=== PATIENT | male | born 1950 | race Caucasian/White ===

== ENCOUNTER → 2019-07-25 13:56 | Outpatient (BNVA) | payer MEDICARE, BC, SELFPAY | PROVIDERS: Family Provider Nurse Practitioner; PCP Nurse Practitioner; Visit Provider Nurse Practitioner | DX: M48.061 Spinal stenosis, lumbar region without neurogenic claudication (principal); M47.816 Spondylosis without myelopathy or radiculopathy, lumbar region; Z79.891 Long term (current) use of opiate analgesic | CPT/HCPCS: 99214 ==

== ENCOUNTER → 2019-12-25 14:07 | Outpatient (BNVA) | payer MEDICARE, BC, SELFPAY | PROVIDERS: Family Provider Nurse Practitioner; PCP Nurse Practitioner; Visit Provider Nurse Practitioner | DX: G89.29 Other chronic pain (principal); M54.42 Lumbago with sciatica, left side; M54.41 Lumbago with sciatica, right side; M48.061 Spinal stenosis, lumbar region without neurogenic claudication; Z79.891 Long term (current) use of opiate analgesic | CPT/HCPCS: 99214 ==

== ENCOUNTER → 2020-01-14 14:05 | Outpatient (BNVA) | payer OTHER, SELFPAY | PROVIDERS: Family Provider Nurse Practitioner; PCP Nurse Practitioner; Visit Provider Anesthesiology Pain Medicine | DX: G89.29 Other chronic pain (principal); M47.816 Spondylosis without myelopathy or radiculopathy, lumbar region; Z79.891 Long term (current) use of opiate analgesic | CPT/HCPCS: 64493; 64494; 64495; J3490 ==

== ENCOUNTER → 2020-03-04 12:34 | Outpatient (BNVA) | payer MEDICARE, BC, SELFPAY | PROVIDERS: Family Provider Nurse Practitioner; PCP Nurse Practitioner; Visit Provider Anesthesiology | DX: G89.29 Other chronic pain (principal); M54.41 Lumbago with sciatica, right side; M54.42 Lumbago with sciatica, left side; M47.816 Spondylosis without myelopathy or radiculopathy, lumbar region; M48.061 Spinal stenosis, lumbar region without neurogenic claudication; M51.36 Other intervertebral disc degeneration, lumbar region; Z79.891 Long term (current) use of opiate analgesic | CPT/HCPCS: 99213; 99214 ==

== ENCOUNTER → 2020-03-24 13:25 | Outpatient (BNVA) | payer MEDICARE, BC, SELFPAY | PROVIDERS: Family Provider Nurse Practitioner; PCP Nurse Practitioner; Visit Provider Anesthesiology | DX: G89.29 Other chronic pain (principal); M48.061 Spinal stenosis, lumbar region without neurogenic claudication; M47.816 Spondylosis without myelopathy or radiculopathy, lumbar region; M51.36 Other intervertebral disc degeneration, lumbar region; G62.9 Polyneuropathy, unspecified; Z79.891 Long term (current) use of opiate analgesic | CPT/HCPCS: 99214 ==

== ENCOUNTER → 2020-04-13 12:29 | Outpatient (BNVA) | payer OTHER, BC, SELFPAY | PROVIDERS: Family Provider Nurse Practitioner; PCP Nurse Practitioner; Visit Provider Anesthesiology Pain Medicine | DX: G89.29 Other chronic pain (principal); M47.816 Spondylosis without myelopathy or radiculopathy, lumbar region | CPT/HCPCS: 64635; 64636; J1030 ==

== ENCOUNTER → 2020-05-13 12:05 | Outpatient (BNVA) | payer OTHER, BC, SELFPAY | PROVIDERS: Family Provider Nurse Practitioner; PCP Nurse Practitioner; Visit Provider Anesthesiology Pain Medicine | DX: G89.29 Other chronic pain (principal); M47.816 Spondylosis without myelopathy or radiculopathy, lumbar region; Z79.891 Long term (current) use of opiate analgesic | CPT/HCPCS: 64635; 64636; J1030 ==

== ENCOUNTER → 2020-05-26 12:32 | Outpatient (BNVA) | payer OTHER, BC, SELFPAY | PROVIDERS: Family Provider Nurse Practitioner; PCP Nurse Practitioner; Visit Provider Anesthesiology | DX: G89.29 Other chronic pain (principal); M54.41 Lumbago with sciatica, right side; M48.061 Spinal stenosis, lumbar region without neurogenic claudication; M51.36 Other intervertebral disc degeneration, lumbar region; M47.816 Spondylosis without myelopathy or radiculopathy, lumbar region; M47.819 Spondylosis without myelopathy or radiculopathy, site unspecified; G62.9 Polyneuropathy, unspecified; Z79.891 Long term (current) use of opiate analgesic | CPT/HCPCS: 99213; 99214 ==

== ENCOUNTER → 2020-07-17 09:55 | Outpatient (BNVA) | payer OTHER, BC, SELFPAY | PROVIDERS: Family Provider Nurse Practitioner; PCP Nurse Practitioner; Visit Provider Internal Medicine Pulmonary Disease | DX: Z20.822 Contact with and (suspected) exposure to COVID-19 (principal); R06.02 Shortness of breath | CPT/HCPCS: 87635 ==

== ENCOUNTER 2020-07-23 11:35 | Outpatient (CLI) | payer OTHER, MEDICARE, BC, SELFPAY ==
--- NOTE | 2020-07-23 12:41 | PFTS_ITS ---
Date of Study:07/23/20 Date of Dictation: MECHANICS: Forced vital capacity (FVC) is normal. Forced expiratory volume in one second (FEV1) is normal. FEV1/FVC is reduced. FLOW VOLUME LOOP: The peak expiratory flow was not achieved in the beginning of forced expiratory maneuver during the pulmonary function testing. LUNG VOLUMES: Total lung capacity (TLC) is normal. Residual volume (RV) is increased. DIFFUSING CAPACITY FOR CARBON MONOXIDE: Normal. INTERPRETATION: The prebronchodilator spirometry is consistent with mild airflow obstruction. No postbronchodilator spirometry was performed. Lung volumes are consistent with air trapping. Gas exchange (DLCO) is normal. MTDD
== END 2020-07-23 11:36 ==
PROVIDERS: PCP Nurse Practitioner; Visit Provider Internal Medicine Pulmonary Disease
DX: G89.29 Other chronic pain (principal); M54.41 Lumbago with sciatica, right side; M54.42 Lumbago with sciatica, left side; M48.061 Spinal stenosis, lumbar region without neurogenic claudication; M51.36 Other intervertebral disc degeneration, lumbar region; M47.816 Spondylosis without myelopathy or radiculopathy, lumbar region; Z79.891 Long term (current) use of opiate analgesic
CPT/HCPCS: 94010; 94726; 94729; 99213

== ENCOUNTER → 2020-08-05 14:13 | Outpatient (BNVA) | payer OTHER, MEDICARE, BC, SELFPAY | PROVIDERS: PCP Nurse Practitioner; Visit Provider Anesthesiology Pain Medicine | DX: G89.29 Other chronic pain (principal); M47.814 Spondylosis without myelopathy or radiculopathy, thoracic region; M54.42 Lumbago with sciatica, left side; M54.41 Lumbago with sciatica, right side; Z79.891 Long term (current) use of opiate analgesic | CPT/HCPCS: 64490; 64491; 64492; J3490 ==

== ENCOUNTER → 2020-08-21 10:48 | Outpatient (BNVA) | payer OTHER, BC, SELFPAY | PROVIDERS: PCP Nurse Practitioner; Visit Provider Anesthesiology Pain Medicine | DX: G89.29 Other chronic pain (principal); M54.42 Lumbago with sciatica, left side; M54.41 Lumbago with sciatica, right side; M47.814 Spondylosis without myelopathy or radiculopathy, thoracic region; Z79.891 Long term (current) use of opiate analgesic | CPT/HCPCS: 99213 ==

== ENCOUNTER 2020-08-28 06:00 | Outpatient (CLI) | payer OTHER, SELFPAY ==
--- NOTE | 2020-08-28 | USCV_ITS ---
Slaughter Mason Age: 70 Gender: M : 1950 Exam Date: 08/28/2020 08:46 Ordering Phys: Suraj Cardoza M.D ([email or web address]) Technologist: Angy Berger [place] [facility] [place]: CHEST PAIN BP: 140 / 90 HR: 63 Rhythm: Sinus Technical Quality: Adequate MEASUREMENTS (Male / Female) Normal Values 2D ECHO LV Diastolic Diameter PLAX 3.4 cm 4.2 - 5.9 / 3.9 - 5.3 cm LV Systolic Diameter PLAX 2.1 cm LV Chamber Size 3.5 cm IVS Diastolic Thickness 1.3 cm 0.6 - 1.0 / 0.6 - 0.9 cm IVS Systolic Thickness 1.8 cm LVPW Diastolic Thickness 1.3 cm 0.6 - 1.0 / 0.6 - 0.9 cm LVPW Systolic Thickness 1.6 cm RV Chamber Size 3.8 cm LVOT Diameter 2.1 cm LV Ejection Fraction 2D Teich 69.3 % LV Ejection Fraction MOD 2C 38.0 % LV Ejection Fraction 2C AL 40.8 % LA Diameter 3.6 cm LA Width 3.5 cm LA Height 3.7 cm RA Width 4.8 cm RA Height 5.1 cm Aorta at Sinotubular Diameter 3.9 cm M-MODE LV Diastolic Diameter MM 4.9 cm 4.2 - 5.9 / 3.9 - 5.3 cm LV Systolic Diameter MM 3.5 cm LV Ejection Fraction MM Teich 56.8 % IVS Diastolic Thickness MM 1.1 cm 0.6 - 1.0 / 0.6 - 0.9 cm IVS Systolic Thickness MM 1.5 cm LVPW Diastolic Thickness MM 1.3 cm 0.6 - 1.0 / 0.6 - 0.9 cm LVPW Systolic Thickness MM 2.0 cm Aortic Annulus Diameter 4.0 cm LA Ao Ratio MM 0.9 MV E Point Septal Separation 0.6 cm DOPPLER AV Peak Velocity 138.0 cm/s LVOT Peak Velocity 101.0 cm/s AV Area Cont Eq vti 2.6 cm squared AV Area Cont Eq pk 2.6 cm squared MV Area PHT 4.6 cm squared Mitral E to A Ratio 1.1 MV E' Velocity 46.0 cm/s Mitral E to MV E' Ratio 8.1 Mitral E to LV E' Lateral Ratio 7.9 Mitral E to LV E' Septal Ratio 8.5 TR Peak Velocity 203.5 cm/s TR Peak Gradient 16.6 mmHg TR Mean Velocity 150.7 cm/s TR Mean Gradient 10.5 mmHg TR Velocity Time Integral 51.6 cm TV Peak E Velocity 63.0 cm/s Right Atrial Pressure 3.0 mmHg Pulmonary Artery Systolic Pressu 19.6 mmHg PV Peak Velocity 89.0 cm/s RV Acceleration Time 0.1 s RV Ejection Time 0.3 s RV AcT/ET 0.3 FINDINGS Left Ventricle Normal left ventricular size. LV systolic function is mildly reduced with EF of 45-50%. Mild global hypokinesis is seen. Normal diastolic filling pattern. Right Ventricle The right ventricle is normal in size and function. Right Atrium The right atrium is normal in size. Left Atrium The left atrium is normal in size. Mitral Valve Structurally normal mitral valve without significant stenosis or prolapse. There is no mitral regurgitation. Aortic Valve Structurally normal aortic valve without significant sclerosis or stenosis. There is no aortic regurgitation. Tricuspid Valve Structurally normal tricuspid valve without significant stenosis or regurgitation. Insufficient TR jet to calculate RVSP Pulmonic Valve Structurally normal pulmonic valve without significant stenosis. There is no pulmonic regurgitation. Pericardium Normal pericardium without effusion. Aorta Mildly dilated ascending aorta CONCLUSIONS LV systolic function is mildly reduced with EF of 45-50%. Mild global hypokinesis is seen Diastolic function is normal Mildly dilated ascending aorta No significant valvular heart disease No comparison studies available Suraj Cardoza MD (Electronically Signed) Final Date: 28 August 2020 15:50 S
[2020-08-28 06:47] VITALS: BMI 29.5
--- NOTE | 2020-08-28 06:47 | ECG_ITS ---
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 Interpretive Statements NAME OF STUDY: LEXISCAN SESTAMIBI STRESS TEST INDICATION: [Chest Pain] Procedure: At the baseline, the blood pressure was 158/95 mmHg, heart rate of 60 bpm. Electrocardiogram showed normal sinus rhythm, with normal ST-T waves. The Lexiscan was infused over a duration of 20 seconds. A total of 0.4 mg of Lexiscan was infused. The stress phase was continued for a total of 5 minutes. Heart rate at the end of stress phase was 65 bpm with a blood pressure of 130/94 mmHg. The EKG revealed sinus rhythm with no significant ST-T wave changes. Sestamibi was injected 20 seconds after the Lexiscan infusion. Blood pressure at the end of recovery phase was 140/91 mmHg with a heart rate of 69 bpm. Conclusion: 1. Normal EKG response to Lexiscan infusion. 2. No Lexiscan induced chest pain or cardiac arrhythmia. 3. Normal blood pressure and heart rate response. 4. Sestamibi/sestamibi perfusion scan pending; see separate report. Electronically Signed On 09-13-2020 17:34:12 CDT by Suraj Cardoza M.D. [email or web address]
--- NOTE | 2020-08-28 06:48 | NMCV_ITS ---
NM jean-paul perf SPECT r/s* [id number] Mason Slaughter Age: 70 Gender: M : 1950 Exam Date: 08/28/2020 07:52 Ordering Phys: Suraj Cardoza M.D ([email or web address]) Technologist: ONUR Florence Exam Location: [facility] Indications: CHEST PAIN STRESS TEST Please [facility] for [facility] IMAGE PROTOCOL Rest/Stress 1 Lexiscan Day Radiopharmaceutical Dose (mCi) Administration Site Administered by Rest: Tc-99m 10.7 IV ONUR Florence Sestamibi Stress:Tc-99m 32.9 IV ONUR Florence Sestamibi Rest: 28-Aug-2020 60 Discovery 630 Stress: 28-Aug-2020 30 Discovery 630 0.4mg Lexiscan. Images obtained in supine and prone position. SPECT RESULTS Technical Quality: Excellent Raw Data Analysis: Normal Image Corrections: No attenuation or motion correction applied Summed Stress Score: 5 Summed Rest Score: 7 Summed Difference Score: 1 PERFUSION FINDINGS There is reduced radiotracer uptake in the apical inferior and inferior wall both on rest and stress. Likely related to prior infarct or attenuation artifact. No evidence of ischemia is noted FUNCTIONAL RESULTS (calculated via Gated SPECT) Stress Image LV EF (%): 55 Stress EDV (mL):121 TID: 1.16 Stress ESV (mL):55 FUNCTIONAL FINDINGS: There is normal left ventricular systolic function. IMPRESSIONS 1. Persistent low radiotracer uptake in the inferior and apical inferior luo. Prior infarct vs attenuation artifact of the inferior wall seen. No evidence of ischemia 2. Normal LV systolic function Suraj Cardoza MD (Electronically Signed) Final Date: 28 August 2020 15:36 S
[2020-08-28] MEDS: regadenoson 0.4 Mg/5 ml Syringe IVP (08:35)
[2020-08-28 08:37] VITALS: BP 140/91; PULSE 74
== END 2020-08-28 06:01 | disposition home or self-care (01) ==
LOC: CDL 06:00
PROVIDERS: PCP Nurse Practitioner; Visit Provider Internal Medicine
DX: R07.9 Chest pain, unspecified (principal)
CPT/HCPCS: 78452; 93017; 93306; A9500; J2785

== ENCOUNTER → 2020-09-17 10:12 | Outpatient (BNVA) | payer OTHER, BC, SELFPAY | PROVIDERS: PCP Nurse Practitioner; Visit Provider Surgery | DX: R09.89 Other specified symptoms and signs involving the circulatory and respiratory systems (principal); Z86.010 Personal history of colon polyps; Z20.822 Contact with and (suspected) exposure to COVID-19 | CPT/HCPCS: 87635 ==

== ENCOUNTER 2020-09-22 07:48 | Day surgery (SDC) | payer OTHER, SELFPAY ==
[2020-09-18 14:25] VITALS: BMI 29.2
--- NOTE | 2020-09-22 08:07 | ANES.PREANE2 ---
Pre-Anesthetic Assessment Pre-Anesthetic Assessment: Height/Weight: Height 1.88 m Weight 103.419 kg Proposed Procedure: Operation Date: 09/22/20 09:30 Proposed Procedures p EGD(Not Applicable) - Nav Rivas MD s Colonoscopy(Not Applicable) - Nav Rivas MD Was Beta Nitza taken within 24 hours: N/A Was Clonidine taken within 24 hours: N/A Social: Social History: No alcohol and No tobacco (quit smoking 2017) Exam: Pre-Anes Outpt Exam: alert, oriented x 3, clear to auscultation bilaterally and regular rate & rhythm (occasional irregular beats ) Airway: Submandibular: WNL Cervical ROM: WNL MP: 2 Dentition: Chipped Pulmonary: Pulmonary: COPD CV/HEM: CV/HEM: None reported : : None reported Hepatic: Hepatic: None reported GI: GI: None reported Metabolic: Metabolic: Thyroid Musc/skel: Musc/skel: Lower Back Pain and OA/DJD Neuropsych: Neuropsych: None reported Anesthetic Plan: ASA status: 3 Anesthesia: MAC PFSH Anesthesia PFSH: Medical History (Updated 09/04/20 @ 09:48 by Nav Rivas MD) Chronic low back pain Colon polyps Facet syndrome, lumbar Polyneuropathy Spinal stenosis, lumbar Surgical History (Updated 09/04/20 @ 09:48 by Nav Rivas MD) History of colonoscopy 2018 Hx of decompressive lumbar laminectomy (~2011) Hx of lumbar discectomy (~06/16/16) Hx of nasal sinusotomy Hx of shoulder surgery RIGHT Family History Other Diabetes Denies family history of Anesthesia complication Bleeding disorder Social History Smoking and tobacco status: former smoker Quit status (tobacco): has quit using tobacco Year quit tobacco: 2017 [id number] Second hand smoke exposure: No Smoking risk assessment/counseling performed?: Yes Alcohol intake: never Lives independently: Yes Household members: none Housing: House Marital status: service: Yes Current occupational status: retired Pets and animals: Yes History of recent travel: No Current gender identity: Male Data Anesthesia Cardiac Studies: No Data to Display
[2020-09-22 08:19] VITALS: BP 172/89; PULSE 64; RESP 18; TEMP 36.8; O2SAT 97
[2020-09-22] MEDS: sodium chloride 0.9% 1,000 ML 30 ML IV (08:25)
--- NOTE | 2020-09-22 09:33 | W.PM.OPSUD ---
Surgery/Procedure H&P Update DATE OF PROCEDURE: September 22, 2020 DATE H&P PERFORMED: 09/04/20 H&P UPDATE INFORMATION: I have reviewed H&P completed within last 30 days, I have examined patient prior to procedure and No changes to prior documentation PREOP DIAGNOSIS: panendoscopy PLANNED PROCEDURE: Operation Date: 09/22/20 09:30 Proposed Procedures p EGD(Not Applicable) - Nav Rivas MD s Colonoscopy(Not Applicable) - Nav Rivas MD
[2020-09-22 10:27] VITALS: BP 105/79; PULSE 68; RESP 16; TEMP 36.1; O2SAT 94
[2020-09-22 10:40] VITALS: BP 122/90; PULSE 66; RESP 18; O2SAT 95
--- NOTE | 2020-09-22 11:39 | ANE.PACU2 ---
Inpatient post-anesthesia follow up: Airway intact: Yes Vital signs: Temperature 97.0 F Pulse Rate 66 Respiratory Rate 18 Blood Pressure 122/90 Pulse Oximetry 95 Oxygen Delivery Me thod Nasal Cannula Oxygen Flow Rate 2 Fraction of Inspir ed Oxygen Hydration adequate: Yes Nausea and vomiting: No Mental status: Baseline
--- NOTE | 2020-09-22 13:47 | ANE.PACU2 ---
Inpatient post-anesthesia follow up: Airway intact: Yes Vital signs: Temperature 97.0 F Pulse Rate 66 Respiratory Rate 18 Blood Pressure 122/90 Pulse Oximetry 95 Oxygen Delivery Me thod Nasal Cannula Oxygen Flow Rate 2 Fraction of Inspir ed Oxygen Hydration adequate: Yes Nausea and vomiting: No Pain level: 2 Mental status: Baseline
== END 2020-09-22 11:00 | disposition home or self-care (01) ==
PROVIDERS: PCP Nurse Practitioner; Visit Provider Surgery
PROC: 0DJ08ZZ Inspection of Upper Intestinal Tract, Via Natural or Artificial Opening Endoscopic (ICD-10-PCS; CPT 43235; principal; 2020-09-22 09:30)
PROC: 0DJD8ZZ Inspection of Lower Intestinal Tract, Via Natural or Artificial Opening Endoscopic (ICD-10-PCS; CPT 45378; 2020-09-22 09:30)
DX: Z86.010 Personal history of colon polyps (principal); K64.8 Other hemorrhoids; K57.30 Diverticulosis of large intestine without perforation or abscess without bleeding; D12.2 Benign neoplasm of ascending colon; D12.4 Benign neoplasm of descending colon; K29.70 Gastritis, unspecified, without bleeding; R09.89 Other specified symptoms and signs involving the circulatory and respiratory systems; Z87.891 Personal history of nicotine dependence; Z83.3 Family history of diabetes mellitus; J44.9 Chronic obstructive pulmonary disease, unspecified; M19.90 Unspecified osteoarthritis, unspecified site
CPT/HCPCS: 43251; 45384; 45385; 88305; 96360; 96361; J2704; J3490; J7030

== ENCOUNTER → 2020-09-29 13:09 | Outpatient (BNVA) | payer OTHER, BC, SELFPAY | PROVIDERS: PCP Nurse Practitioner; Visit Provider Anesthesiology | DX: G89.29 Other chronic pain (principal); M54.42 Lumbago with sciatica, left side; M54.41 Lumbago with sciatica, right side; M48.061 Spinal stenosis, lumbar region without neurogenic claudication; M47.816 Spondylosis without myelopathy or radiculopathy, lumbar region; M51.36 Other intervertebral disc degeneration, lumbar region; M47.814 Spondylosis without myelopathy or radiculopathy, thoracic region; Z79.891 Long term (current) use of opiate analgesic | CPT/HCPCS: 99214 ==

== ENCOUNTER → 2020-10-16 12:56 | Outpatient (BNVA) | payer OTHER, MEDICARE, BC, SELFPAY | PROVIDERS: PCP Nurse Practitioner; Visit Provider Anesthesiology Pain Medicine | DX: G89.29 Other chronic pain (principal); M47.814 Spondylosis without myelopathy or radiculopathy, thoracic region; M54.42 Lumbago with sciatica, left side; M54.41 Lumbago with sciatica, right side; Z79.891 Long term (current) use of opiate analgesic | CPT/HCPCS: 64633; 64634 ==

== ENCOUNTER → 2020-10-30 12:35 | Outpatient (BNVA) | payer OTHER, MEDICARE, BC, SELFPAY | PROVIDERS: PCP Nurse Practitioner; Visit Provider Anesthesiology Pain Medicine | DX: G89.29 Other chronic pain (principal); M47.814 Spondylosis without myelopathy or radiculopathy, thoracic region; M54.42 Lumbago with sciatica, left side; M54.41 Lumbago with sciatica, right side; Z79.891 Long term (current) use of opiate analgesic | CPT/HCPCS: 64633; 64634; J1030 ==

== ENCOUNTER → 2020-11-18 09:24 | Outpatient (BNVA) | payer OTHER, MEDICARE, BC, SELFPAY | PROVIDERS: PCP Nurse Practitioner; Visit Provider Nurse Practitioner | DX: G89.29 Other chronic pain (principal); M54.42 Lumbago with sciatica, left side; M54.41 Lumbago with sciatica, right side; M48.061 Spinal stenosis, lumbar region without neurogenic claudication; M47.816 Spondylosis without myelopathy or radiculopathy, lumbar region; M47.814 Spondylosis without myelopathy or radiculopathy, thoracic region; M51.36 Other intervertebral disc degeneration, lumbar region; Z79.891 Long term (current) use of opiate analgesic | CPT/HCPCS: 99213 ==

== ENCOUNTER → 2021-01-29 10:45 | Outpatient (BNVA) | payer OTHER, SELFPAY | PROVIDERS: PCP Nurse Practitioner; Visit Provider Nurse Practitioner | DX: G89.29 Other chronic pain (principal); M54.42 Lumbago with sciatica, left side; M54.41 Lumbago with sciatica, right side; M47.814 Spondylosis without myelopathy or radiculopathy, thoracic region; M48.061 Spinal stenosis, lumbar region without neurogenic claudication; M51.36 Other intervertebral disc degeneration, lumbar region; M47.816 Spondylosis without myelopathy or radiculopathy, lumbar region; G62.9 Polyneuropathy, unspecified; R07.9 Chest pain, unspecified; Z79.891 Long term (current) use of opiate analgesic | CPT/HCPCS: 99214 ==

== ENCOUNTER → 2021-03-25 10:20 | Outpatient (BNVA) | payer OTHER, SELFPAY | PROVIDERS: PCP Nurse Practitioner; Visit Provider Anesthesiology | DX: G89.29 Other chronic pain (principal); M48.061 Spinal stenosis, lumbar region without neurogenic claudication; M47.816 Spondylosis without myelopathy or radiculopathy, lumbar region; M54.42 Lumbago with sciatica, left side; M54.41 Lumbago with sciatica, right side; M51.36 Other intervertebral disc degeneration, lumbar region; M47.819 Spondylosis without myelopathy or radiculopathy, site unspecified; Z79.891 Long term (current) use of opiate analgesic | CPT/HCPCS: 99213 ==

== ENCOUNTER → 2021-04-14 14:21 | Outpatient (BNVA) | payer OTHER, BC, SELFPAY | PROVIDERS: PCP Nurse Practitioner; Visit Provider Urology | DX: C61 Malignant neoplasm of prostate (principal); N52.9 Male erectile dysfunction, unspecified | CPT/HCPCS: 81003 ==

== ENCOUNTER → 2021-06-29 12:48 | Outpatient (BNVA) | payer OTHER, SELFPAY | PROVIDERS: PCP Nurse Practitioner; Visit Provider Anesthesiology | DX: G89.29 Other chronic pain (principal); M54.42 Lumbago with sciatica, left side; M54.41 Lumbago with sciatica, right side; M48.061 Spinal stenosis, lumbar region without neurogenic claudication; M51.36 Other intervertebral disc degeneration, lumbar region; M47.816 Spondylosis without myelopathy or radiculopathy, lumbar region; M47.819 Spondylosis without myelopathy or radiculopathy, site unspecified; G62.9 Polyneuropathy, unspecified; Z79.891 Long term (current) use of opiate analgesic | CPT/HCPCS: 99213 ==

== ENCOUNTER → 2021-11-03 13:17 | Outpatient (BNVA) | payer OTHER, SELFPAY | PROVIDERS: PCP Nurse Practitioner; Visit Provider Internal Medicine Pulmonary Disease | DX: J44.9 Chronic obstructive pulmonary disease, unspecified (principal); G89.29 Other chronic pain; J92.0 Pleural plaque with presence of asbestos; M54.41 Lumbago with sciatica, right side; M54.42 Lumbago with sciatica, left side; Z01.818 Encounter for other preprocedural examination; Z87.891 Personal history of nicotine dependence | CPT/HCPCS: 99214 ==

== ENCOUNTER → 2021-11-22 12:19 | Outpatient (BNVA) | payer OTHER, SELFPAY | PROVIDERS: PCP Nurse Practitioner; Visit Provider Internal Medicine | DX: I71.2 Thoracic aortic aneurysm, without rupture (principal); E78.5 Hyperlipidemia, unspecified; J44.9 Chronic obstructive pulmonary disease, unspecified; I10 Essential (primary) hypertension; Z87.891 Personal history of nicotine dependence | CPT/HCPCS: 99214 ==

== ENCOUNTER 2021-12-29 10:23 | Outpatient (CLI) | payer OTHER, SELFPAY ==
--- NOTE | 2021-12-29 13:42 | PFTS_ITS ---
Date of Study:12/29/21 Date of Dictation: MECHANICS: Forced vital capacity (FVC) is reduced. Forced expiratory volume in one second (FEV1) is reduced. FEV1/FVC is normal. FLOW VOLUME LOOP: Reduced lateral lung volumes with scooping. LUNG VOLUMES: Total lung capacity (TLC) is increased. Residual volume (RV) is increased. DIFFUSING CAPACITY FOR CARBON MONOXIDE: Normal. INTERPRETATION: The postbronchodilator spirometry is consistent with mild restriction. There is some but not a significant postbronchodilator response. Lung volumes are consistent with hyperinflation and air trapping. Gas exchange (DLCO) is normal. The discrepant spirometry and lung volume measurement are consistent with nonspecific ventilatory limitations. The patient likely has a combination of obstructive and restrictive ventilatory defects. MTDD
== END 2021-12-29 10:24 | disposition home or self-care (01) ==
LOC: RT 10:23
PROVIDERS: PCP Nurse Practitioner; Visit Provider Internal Medicine Pulmonary Disease
DX: J44.9 Chronic obstructive pulmonary disease, unspecified (principal)
CPT/HCPCS: 94060; 94618; 94726; 94729; J7614

== ENCOUNTER → 2022-01-03 09:36 | Outpatient (BNVA) | payer OTHER, SELFPAY | PROVIDERS: PCP Nurse Practitioner; Visit Provider Internal Medicine Pulmonary Disease | DX: J44.9 Chronic obstructive pulmonary disease, unspecified (principal); J92.0 Pleural plaque with presence of asbestos; Z87.891 Personal history of nicotine dependence; Z12.2 Encounter for screening for malignant neoplasm of respiratory organs | CPT/HCPCS: 99214 ==

== ENCOUNTER 2022-01-14 11:09 | Outpatient (CLI) | payer OTHER, SELFPAY ==
--- NOTE | 2022-01-14 12:00 | CT_ITS ---
WS: [id number] CTA THORACIC AORTA WITH AND WITHOUT CONTRAST HISTORY: thoracic aortic aneurysm TECHNIQUE: CT imaging of the thorax is performed with and without contrast. After noncontrast imaging is performed, CT angiogram is performed during injection of Omnipaque 300; 95 mL IV.. Sagittal and c oronal reconstructions, sagittal and coronal MIP imaging is submitted. All CT scans at [facility] use at least one of these dose optimization techniques: automated exposure control; mA and/or kV adjustment per patient size (includes targeted exams where dose is matched to clinical indication); or iterative reconstruction. DLP: 1272.04 mGy.cm COMPARISON: 10/30/2018 Mildly ectatic thoracic aorta. Not aneurysmal at this time. Maximum diameter of this ascending aorta is 4.1 cm. This is less than 1.5 times the normal descending aortic diameter which is 3.0 cm. Very mi ld atherosclerotic plaque. No ulcerating plaque and no dissection. Note. Aortic hematoma. Great vesse ls arise normally from the aorta. There are mild atherosclerotic plaque of the suprarenal aorta. Mese nteric arteries are both patent. Accessory renal artery on the RIGHT. Main renal arteries are not as well visualized on only partially included on this examination through the thoracic aorta. 5 mm slightly spiculated nodule in the medial RIGHT upper lobe stable since 01/04/2018. New groundglas s attenuation nodule measuring 8 mm in diameter superior segment RIGHT lower lobe. Linear scarring in the RIGHT lower lobe. No mediastinal or hilar lymph nodes. Heart is normal size. Small hiatal hernia. Low-attenuation nodules are noted within the liver. The largest measures 13 mm just lateral to the ga llbladder. These are unchanged since 10/30/2018. No adrenal mass. Increase in thoracic kyphosis. CT/CT angio chest [id number] IMPRESSION: 1. Mild ectasia thoracic aorta with no aneurysm. Maximum transverse diameter 4 .1 cm of the ascending aorta. 2. No thoracic aortic dissection. 3. Long-term stability 5 mm spiculated nodule medial RIGHT upper lobe. 4. Stable low-attenuation lesions within the liver greater than 2 years, proba cathleen cysts.
[2022-01-14 12:29] LABS: Blood Urea Nitrogen 13 mg/dL (8-23)
[2022-01-14] MEDS: iohexol 350 mg/mL 100 mL Btl IV (12:40)
== END 2022-01-14 11:10 | disposition home or self-care (01) ==
LOC: RAD 11:10
PROVIDERS: PCP Nurse Practitioner; Visit Provider Internal Medicine
DX: I71.2 Thoracic aortic aneurysm, without rupture (principal)
CPT/HCPCS: 71275; 82565; 84520

== ENCOUNTER 2022-02-08 10:41 | Outpatient (CLI) | payer OTHER, SELFPAY ==
--- NOTE | 2022-02-08 11:11 | XR_ITS ---
WS: [id number] Exam: XR chest 2V* [id number] Date/Time of Exam: 02/08/2022 11:22 AM Reason For Exam: COPD No priors. The lungs are hyperinflated and clear. Normal cardiomediastinal silhouette. No pleural effusions. Fib wilmer scarring in the right base. Regional bony elements are intact. XR/XR chest 2V* [id number] IMPRESSION: 1. Pulmonary hyperinflation which may indicate COPD. No acute cardiopulmonary f inding.
== END 2022-02-08 10:42 | disposition home or self-care (01) ==
PROVIDERS: PCP Nurse Practitioner; Visit Provider Chiropractor
DX: J44.9 Chronic obstructive pulmonary disease, unspecified (principal)
CPT/HCPCS: 71046

== ENCOUNTER → 2022-03-04 09:08 | Outpatient (BNVA) | payer OTHER, SELFPAY | PROVIDERS: PCP Nurse Practitioner; Visit Provider Internal Medicine Pulmonary Disease | DX: J44.9 Chronic obstructive pulmonary disease, unspecified (principal); J92.0 Pleural plaque with presence of asbestos; Z87.891 Personal history of nicotine dependence | CPT/HCPCS: 99214 ==

== ENCOUNTER → 2022-04-19 13:17 | Outpatient (BNVA) | payer OTHER, SELFPAY | PROVIDERS: PCP Nurse Practitioner; Visit Provider Urology | DX: C61 Malignant neoplasm of prostate (principal); N52.9 Male erectile dysfunction, unspecified | CPT/HCPCS: 81003; 99213 ==

== ENCOUNTER → 2022-05-23 13:38 | Outpatient (BNVA) | payer OTHER, SELFPAY | PROVIDERS: PCP Nurse Practitioner; Visit Provider Internal Medicine | DX: I71.20 Thoracic aortic aneurysm, without rupture, unspecified (principal); E78.5 Hyperlipidemia, unspecified; J44.9 Chronic obstructive pulmonary disease, unspecified; I10 Essential (primary) hypertension; Z87.891 Personal history of nicotine dependence | CPT/HCPCS: 99214 ==

== ENCOUNTER → 2022-09-02 09:05 | Outpatient (BNVA) | payer OTHER, SELFPAY | PROVIDERS: PCP Nurse Practitioner; Visit Provider Internal Medicine Pulmonary Disease | DX: J44.9 Chronic obstructive pulmonary disease, unspecified (principal); J92.0 Pleural plaque with presence of asbestos; Z87.891 Personal history of nicotine dependence | CPT/HCPCS: 99214 ==

== ENCOUNTER → 2022-11-28 13:29 | Outpatient (BNVA) | payer OTHER, SELFPAY | PROVIDERS: PCP Nurse Practitioner; Visit Provider Internal Medicine | DX: I71.21 Aneurysm of the ascending aorta, without rupture (principal); E78.5 Hyperlipidemia, unspecified; J44.9 Chronic obstructive pulmonary disease, unspecified; I10 Essential (primary) hypertension; I48.91 Unspecified atrial fibrillation; Z87.891 Personal history of nicotine dependence | CPT/HCPCS: 99214 ==

== ENCOUNTER 2022-12-28 10:02 | Outpatient (CLI) | payer OTHER, SELFPAY ==
--- NOTE | 2022-12-28 | USR_ITS ---
PROCEDURE INFORMATION: Exam: US Abdomen, Limited; Right Upper Quadrant Exam date and time: 12/28/2022 11:21 AM Age: 72 years old Clinical indication: Abnormal findings; Abnormal lab test; Elevated liver enzymes TECHNIQUE: Imaging protocol: Real time ultrasound of the abdomen with image documentation. Limited exam focused on the right upper quadrant. COMPARISON: CT abdomen pelvis wo/w [id number] 11/23/2017 9:56 AM FINDINGS: Liver: 2 simple cysts are seen within the liver with the largest measuring about 2.4 cm. The liver is otherwise normal. Gallbladder: Gallstones are seen. No wall thickening or edema. Biliary ducts: Normal. No stones. No dilation. Pancreas: Visualized pancreas is unremarkable. Right kidney: A 1.6 cm simple cyst is seen in the lower pole of the right kidney. No solid mass or hydronephrosis. Aorta: Normal as visualized. US/US abdomen limited 16422 IMPRESSION: 1. Cholelithiasis with no sonographic evidence for acute cholecystitis. 2. Simple hepatic and right renal cysts.
== END 2022-12-28 10:03 | disposition home or self-care (01) ==
PROVIDERS: PCP Nurse Practitioner; Visit Provider Internal Medicine
DX: K80.20 Calculus of gallbladder without cholecystitis without obstruction (principal); K76.89 Other specified diseases of liver; N28.1 Cyst of kidney, acquired; R74.8 Abnormal levels of other serum enzymes
CPT/HCPCS: 76705

== ENCOUNTER → 2023-01-02 09:42 | Outpatient (BNVA) | payer OTHER, SELFPAY | PROVIDERS: PCP Nurse Practitioner; Visit Provider Podiatrist Foot & Ankle Surgery | DX: M76.71 Peroneal tendinitis, right leg (principal); Q66.71 Congenital pes cavus, right foot | CPT/HCPCS: 73630; 99204 ==

== ENCOUNTER → 2023-02-16 09:33 | Outpatient (BNVA) | payer OTHER, SELFPAY | PROVIDERS: PCP Nurse Practitioner; Visit Provider Podiatrist Foot & Ankle Surgery | DX: L60.3 Nail dystrophy (principal) | CPT/HCPCS: 11750 ==

== ENCOUNTER → 2023-03-08 09:46 | Outpatient (BNVA) | payer OTHER, SELFPAY | PROVIDERS: PCP Nurse Practitioner; Visit Provider Internal Medicine Pulmonary Disease | DX: J44.9 Chronic obstructive pulmonary disease, unspecified (principal); J92.0 Pleural plaque with presence of asbestos; Z87.891 Personal history of nicotine dependence; Z12.2 Encounter for screening for malignant neoplasm of respiratory organs; Z77.090 Contact with and (suspected) exposure to asbestos | CPT/HCPCS: 99214 ==

== ENCOUNTER 2023-04-27 13:32 | Outpatient (CLI) | payer OTHER, SELFPAY ==
--- NOTE | 2023-04-27 14:00 | CTR_ITS ---
PROCEDURE INFORMATION: Exam: CT Chest Without Contrast; Diagnostic Exam date and time: 04/27/2023 1:44 PM Age: 72 years old Clinical indication: Abnormal findings; Abnormal radiologic exam of lung or chest; Additional info: F/u lung nodules TECHNIQUE: Imaging protocol: Diagnostic computed tomography of the chest without contrast. Radiation optimization: All CT scans at this facility use at least one of these dose optimization techniques: automated exposure control; mA and/or kV adjustment per patient size (includes targeted exams where dose is matched to clinical indication); or iterative reconstruction. REPORTING DATA: Count of CT and Cardiac NM exams in prior 12 months: This patient has received [address] and 0 known cardiac nuclear medicine studies in the 12 months prior to the current study. COMPARISON: CT lung screening [id number] 02/28/2023 10:51 AM RADIATION DOSE METRICS: Total DLP (mGy-cm): 525.32 FINDINGS: Lungs: Calcified granuloma in the left lower lobe. Stable 5 mm nodular density in the medial right upper lobe (4-19). This is been unchanged since 01/14/2022. Stable 15 mm ground-glass nodule in the right lower lobe (4-34). Other stable since the most recent examination it is slightly larger than on 01/14/2022. Continued surveillance recommended. Stable mild linear fibrosis in the right lower lobe. Pleural spaces: Unremarkable. No pneumothorax. No pleural effusion. Heart: Unremarkable. No cardiomegaly. No pericardial effusion. Lymph nodes: Unremarkable. No enlarged lymph nodes. Vasculature: Unremarkable. No aortic aneurysm. Liver: Tiny left hepatic cyst. Bones/joints: Unremarkable. No acute fracture. Soft tissues: Unremarkable. CT/CT chest wo con [id number] IMPRESSION: No significant change although the ground-glass opacity has enlarged since 01/14/2022. Therefore a follow-up chest CT in 6 additional months is recommended.
== END 2023-04-27 13:33 | disposition home or self-care (01) ==
LOC: RAD 13:32
PROVIDERS: PCP Nurse Practitioner; Visit Provider Internal Medicine Pulmonary Disease
DX: R91.8 Other nonspecific abnormal finding of lung field (principal)
CPT/HCPCS: 71250

== ENCOUNTER 2023-05-01 10:08 | Outpatient (CLI) | payer OTHER, SELFPAY ==
--- NOTE | 2023-05-01 10:14 | CT_ITS ---
WS: [id number] CTA THORACIC AORTA WITH AND WITHOUT CONTRAST HISTORY: ASCENDING AORTIC ANEURYSM TECHNIQUE: CT imaging of the thorax is performed with and without contrast. After noncontrast imaging is performed, CT angiogram is performed during injection of Omnipaque 350; 100 mL IV.. Sagittal and coronal reconstructions, sagittal and coronal MIP imaging is submitted. All CT scans at [facility] use at least one of these dose optimization techniques: automated exposure control; mA and/or k V adjustment per patient size (includes targeted exams where dose is matched to clinical indication); or iterative reconstruction. DLP: 916.10 mGy.cm COMPARISON: 01/14/2022, 01/14/2022 Mildly ectatic thoracic aorta. Maximum transverse diameter of the ascending aorta is 4.3 cm. Very sli ght increase in size since 01/14/2022. Normal descending aorta. Mild atherosclerotic plaque. Great vess els arise normally. No dissection or ulcerating plaque. Heart size is normal. Lipomatous changes along the intra-atrial septum. No pericardial or pleural eff usions. Reidentified is a subsolid opacification in the superior RIGHT lower lobe measuring 1.5 cm. T his groundglass opacification is undergoing surveillance as described on a prior CT from 04/27/2023. No additional nodules or suspicious masses. No adenopathy. Small hiatal hernia. There are a few scattered hepatic cysts. No adrenal mass. Mild increase in thoracic kyphosis. IMPRESSION: 1. Ectatic thoracic aorta with a maximum diameter of 4.3 cm of the ascending aorta. Slight increase i n size by 1 to 2 mm since 01/14/2022. 2. No dissection or ulcerating plaque. 3. Normal size heart. 4. Previously described groundglass attenuation is reidentified in the RIGHT lower lobe measuring 1.5 cm. Groundglass attenuation is undergoing surveillance as described on a prior CT of 04/27/2023.
[2023-05-01 10:44] LABS: Blood Urea Nitrogen 10 mg/dL (8-23)
[2023-05-01] MEDS: iohexol 350 mg/mL 500 mL Btl (per mL) IV (10:54)
== END 2023-05-01 10:09 | disposition home or self-care (01) ==
LOC: RAD 10:08
PROVIDERS: PCP Nurse Practitioner; Visit Provider Internal Medicine
DX: I71.40 Abdominal aortic aneurysm, without rupture, unspecified (principal)
CPT/HCPCS: 71275; 82565; 84520; Q9967

== ENCOUNTER 2023-05-09 08:36 | Day surgery (SDC) | payer OTHER, SELFPAY ==
[2023-05-09] VITALS (10 sets, daily range): BP systolic 124–165; BP diastolic 78–95; PULSE 52–64; RESP 12–20; TEMP 36.2–36.4; O2SAT 93–99; BMI 29.4
--- OUTSIDE RECORDS SUMMARY | 2023-05-09 08:38 | XMS_ITS | Patient Health Record ---
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 Name Role Phone Selma Castillo Primary Care Provider Liane Martin Unavailable [phone] ALLERGIES Allergen (clinical drug ingredient) Drug/Non Drug Allergy documented on EMR Reaction Allergy Type Onset Date Status Adhesive Unknown Allergy Active Penicillin Unknown Drug Allergy Active REASON FOR REFERRAL No Information MEDICATIONS Medication SIG (Take, Route, Frequency, Duration) Notes Start Date End Date Status Symbicort 160-4.5 MCG/ACT 2 puffs Inhala tion Twice a day Active ProAir HFA 108 (90 Base) MCG/ACT 1 puff as needed Inhalation every 4 hrs Active OxyCONTIN 20 MG 1 tablet Orally ever y 12 hrs Active MiraLax 17 GM 1 packet mixed with 8 ounces of fluid Orally Once a day Active oxyCODONE HCl 5 MG 1 tablet as needed Orally every 6 hrs Active Levothyroxine Sodium 100 MCG 1 tablet in the morning on an empty stomach Orally Once a day Active Cyclobenzaprine HCl 10 MG 1 tablet at be dtime as needed Orally Once a day Active Temazepam Active Vitamin D3 Active ZyrTEC Active Spiriva Respimat Act kenya Tamsulosin HCl 0.4 MG 1 capsule Orally O nce a day Active SOCIAL HISTORY Tobacco Use: Social History Observation Description Date Details (start date - stop date) Former Smoker NA - NA Sex Assigned At : Social History Observation Description Sex Assigned At Unknown Tobacco Use/Smoking Question Answer Notes Are you a former smoker How long has it been since you last smoked? > 10 years Alcohol Screen (Audit-C) Question Answer Notes Did you have a drink containing alcohol in the p ast year? No Points 0 Interpretation Negative PROBLEMS Problem Type ICD Code Onset Dates Problem Status W/U Status Risk SNOMED Code Notes Problem Lumbar spondylosis (M47.816) Active confirmed 650126255 Problem Abnormal chest xray (R93.89) Active confirmed 764736409 PLAN OF TREATMENT Pending Test Test Name Order Date Prothrombin Time 69766 11/17/2020 Basic Metabolic Panel 60786 11/17/2020 Basic Metabolic Panel 61011 11/20/2020 Blood Urea Nitrogen (BUN) 29134 11/21/19 21 CBC w\ Auto Diff 79585 11/17/2020 CBC w\ Auto Diff 31816 11/22/2020 Comprehensive Metabolic Panel 32369 11/10 Creatinine (B) 40315 11/20/2020 Magnesium (B) 68838 11/22/2020 Partial Thromboplastin Time 50255 2020 Phosphorus (B) 80912 11/22/2020 Thyroid Stimulating Hormone (TSH) 05495 11/22/2020 Troponin-I 36667 11/22/2020 Troponin-I 52588 11/22/2020 Troponin-I 75665 11/22/2020 CBC Reflex Man Diff 40369, 24632 021 Chest PA/Lat-87503 11/17/2020 CT Chest w/ + w/o Contrast diagnostic-71 270 11/23/2020 CT Chest w/ Contrast diagnostic-30359 Lumbosacral Spine AP/Lat-19271 XR Outside CD 09/17/2020 XR Outside CD 09/17/2020 XR Outside CD 09/17/2020 Electrocardiogram 12 Lead Tracing-95754 11/17/2020 WBC Auto Diff--22949 11/20/2020 zzzFluoroscopy 11/20/2020 zzzMRI Outside CD 10/09/2020 Insurance Providers Payer Name Payer Address Payer Phone Subscriber Number Group Number Insured Name Patient Relationship to Insured Coverage Start Date Coverage End Date [employer] [address] [place] [phone] [id number] Mason Slaughter Self - patient is the insured MEDICAL (GENERAL) HISTORY Medical History History ICD Code measles mumps chicken pox pneumonia heart disease arthritis migraine headaches prostate cancer back trouble high blood pressure asthma colon polyps depression fibromyalgia hypothyroidism osteoporosis Surgical History Surgery Date(Month/Year) lumbar decompression 11/2020 thoracic back surgery 06/2000 neck tumor
[2023-05-09] MEDS: sodium chloride 0.9% 1,000 ML 30 ML IV (09:18)
--- NOTE | 2023-05-09 09:25 | PM.OPSURHP ---
Providers/Chief Complaint Admitting Physician: Donny Duenas MD [facility] Primary Care Provider: LAKIA DavidP Chief Complaint: Pre 05-08 Groundglass lung nodule History of Present Illness Mason Slaughter is a 72 year old male with past medical history of COPD, chronic low back pain due to lumbar spinal stenosis adenocarcinoma of prostrate s/p radiation treatment 2018 follows up with me for COPD. He has significant smoking history-1.5 pack/day for 40 years-quit 2016. PFTs December 2021-consistent with mild restriction.-Currently using Wixela 500 mcg 1 puff twice daily and Spiriva 2 puffs twice daily. And states it is helping. His functional capacity is limited by back pain and shortness of breath. Complains of low back pain and lately causing weakness in bilateral legs and is planning to undergo spinal decompression by neurosurgery. Patient undergoes lung cancer screening- -CT 10/30/2018 showed emphysema and prior granulomatous disease. -CT chest 01/14/2022 showed long-term stability 5 mm spiculated nodule medial right upper lobe -Annual low-dose CT January 2023 done at [facility]-I do not have the images but obtained the report-which reported 9.3 mm nodule located in paravertebral RUL. There is another 7.6 mm nodule in anterior lateral infrahilar right lung. Lung RADS 4A suspicious and recommended 3-month follow-up CT -A 3-month follow-up CT on 04/27/2023 showed stable 5 mm medial right upper lobe nodule unchanged since 01/14/2022. However there is 15 mm groundglass nodule right lower lobe slightly larger than 01/14/2022. As groundglass opacities can be slow-growing adenocarcinoma in patient with chronic smoking history-I have discussed with patient about obtaining biopsies using navigational bronchoscopy as well as endobronchial ultrasound surveillance of hilar/mediastinal lymph nodes. I explained the possible complications including pneumothorax as well as bleeding. Patient verbalized understanding the indication, nature of the procedure, complications, alternatives and agreed to go ahead with the procedure. Today comes for the same. Denied any complaints.. Review of Systems General: Reports: 10 or more systems reviewed and unremarkable except in HPI and below Medications/Allergies Home Medications Medication Instructions Recorded Confirmed Last Taken Type cyclobenzaprine 10 mg tablet 10 mg PO BID PRN Pain 07/24/19 05/08/2323 History multivitamin (One Daily 1 tab PO DAILY 07/24/19 05/08/23 05/08/23 History Multivitamin tablet) polyethylene glycol 3350 17 17 gm PO DAILY 07/24/19 05/08/23 05/08/23 History gram/dose oral powder (Miralax) tamsulosin 0.4 mg capsule (Flomax) 0.4 mg PO DAILY 07/24/19 05/08/23 05/08/23 History albuterol sulfate 90 mcg/actuation 1 inh inhalation ONCE PRN 07/25/19 05/08/23 05/08/23 History aerosol inhaler (ProAir HFA) Shortness Of Breath cetirizine 10 mg tablet (Zyrtec) 10 mg PO DAILY PRN Allergy Symptoms 07/25/19 05/08/23 05/08/23 History cholecalciferol (vitamin D3) 100 100 mcg PO DAILY 09/18/20 05/08/23 05/08/23 History mcg (4,000 unit) capsule (Vitamin D3) levothyroxine 100 mcg tablet 100 mcg PO DAILY 09/18/20 05/08/23 05/08/23 History (Synthroid) diltiazem HCl 120 mg 120 mg PO DAILY 12/04/20 05/08/23 05/08/23 History capsule,extended release 24 hr (Cardizem CD) sildenafil 100 mg tablet 100 mg PO DAILY PRN sexual 04/14/21 05/08/23 05/08/23 Rx activity #20 tabs oxycodone 15 mg tablet,crush 15 mg PO TID 30 days #90 tabs 06/29/21 05/08/23 05/08/23 Rx resistant,extended release 12 hr oxycodone 5 mg tablet 5 mg PO BID PRN pain 30 days #60 06/29/21 05/08/23 05/08/23 Rx tabs amlodipine 5 mg tablet 5 mg PO DAILY #90 tabs 07/05/22 05/08/23 05/08/23 Rx fluticasone 500 mcg-salmeterol 50 1 inh inhalation BID #60 ea 11/02/22 05/08/23 05/08/23 Rx mcg/dose blistr powdr for inhalation (Wixela Inhub) tiotropium bromide 2.5 2 puff inhalation DAILY #4 grams 11/02/22 05/08/23 05/08/23 Rx mcg/actuation mist for inhalation (Spiriva Respimat) Copolymer Orthotics #1 ea 01/02/23 03/08/23 05/08/23 Rx diclofenac sodium 1 % topical gel 2 g topical QID #100 grams 02/16/23 05/08/23 05/08/23 Rx (Voltaren Arthritis Pain) silver sulfadiazine 1 % topical 1 applic topical BID 2 weeks #50 02/16/23 05/08/23 05/08/23 Rx cream grams Allergies Allergy/AdvReac Type Severity Reaction Status Date / Time adhesive Allergy rash Verified 05/08/23 07:52 latex Allergy rash Verified 05/08/23 07:52 Penicillins Allergy ALGY-Anaphy Verified 05/08/23 07:52 laxis metoprolol AdvReac SLEEPLESS, Verified 05/08/23 07:52 FREEZING polyethylene glycol AdvReac RASH Verified 05/08/23 07:52 [From Golytely] potassium chloride AdvReac RASH Verified 05/08/23 07:52 [From Golytely] sodium [From Golytely] AdvReac RASH Verified 05/08/23 07:52 sodium bicarbonate AdvReac RASH Verified 05/08/23 07:52 [From Golytely] sodium chloride AdvReac RASH Verified 05/08/23 07:52 [From Golytely] PFSH PFSH: Medical History Erectile dysfunction Prostate cancer Colon polyps Chronic low back pain Facet syndrome, lumbar Spinal stenosis, lumbar Polyneuropathy Surgical History H/O esophagogastroduodenoscopy (09/22/20) History of colonoscopy (09/22/20) 2018 Hx of decompressive lumbar laminectomy (~2011) Hx of lumbar discectomy (~06/16/16) Hx of nasal sinusotomy Hx of shoulder surgery RIGHT Family History Father , at age 82 Cancer prostate Mother , at age 91 No problems noted. Other Diabetes Social History Smoking and tobacco/nicotine status: former use of tobacco/nicotine Quit status (tobacco/nicotine): has quit using Year quit tobacco: 2017 [id number] Alcohol intake: never Substance/Drug Use: never Marital status: service: Yes Current occupational status: retired Do you think of yourself as: Straight/Heterosexual Dietary Habits: Caffeine: Yes Caffeine intake frequency: carbonated beverages and coffee Vital Signs Vitals Signs: Last Vital Signs Temp 97.5 F L 05/09/23 08:35 Pulse 52 L 05/09/23 08:35 Resp 20 H 05/09/23 08:35 BP 124/78 05/09/23 08:35 Pulse Ox 97 05/09/23 08:35 O2 Del Method Room Air 05/09/23 08:35 Weight: Weight last 48 hrs Weight 8.078 oz Physical Exam Narrative: EXAM NARRATIVE: General: alert, NAD HEENT: conj clear, EOMI, PERRL, mmm, Neck: supple, no meningismus Heme: no cervical LAP Respiratory: Inspection: No visible deformity of the chest wall Palpation: Trachea is mildly deviated to the right, bilateral symmetric expansion Percussion: Bilateral tympanic percussion note both anterior and posteriorly Auscultation: Bilateral clear to auscultation both anterior and posteriorly, no crackles wheezing or rhonchi Cardiovascular: rrr, nl s1s2, no mrg Abdomen: soft, nt, nd, no r/g, bs+ Extremities: pulses +, no edema, no c/c : no CVA tenderness Skin: intact, no rash MSK: no back or neck pain Neurologic: grossly intact A&P Assessment and plan (1) Ground glass opacity present on imaging of lung: Patient undergoes lung cancer screening- -CT 10/30/2018 showed emphysema and prior granulomatous disease. -CT chest 01/14/2022 showed long-term stability 5 mm spiculated nodule medial right upper lobe -Annual low-dose CT January 2023 done at [facility]-I do not have the images but obtained the report-which reported 9.3 mm nodule located in paravertebral RUL. There is another 7.6 mm nodule in anterior lateral infrahilar right lung. Lung RADS 4A suspicious and recommended 3-month follow-up CT -A 3-month follow-up CT on 04/27/2023 showed stable 5 mm medial right upper lobe nodule unchanged since 01/14/2022. However there is 15 mm groundglass nodule right lower lobe slightly larger than 01/14/2022. As groundglass opacities can be slow-growing adenocarcinoma in patient with chronic smoking history-I have discussed with patient about obtaining biopsies using navigational bronchoscopy as well as endobronchial ultrasound surveillance of hilar/mediastinal lymph nodes. I explained the possible complications including pneumothorax as well as bleeding. Patient verbalized understanding the indication, nature of the procedure, complications, alternatives and agreed to go ahead with the procedure. Today comes for the same. Denied any complaints.. (2) Prostate cancer: (3) Ex-smoker: Coding Level of Care Code Acute Code for Chg Fwd Diagnoses Ground glass opacity present on imaging of lung R91.8 Prostate cancer C61 Ex-smoker Z87.891 Time Spent (min) 18
--- NOTE | 2023-05-09 09:34 | ANES.PREANE2 ---
Pre-Anesthetic Assessment Height/Weight: Height 1.88 m Weight 229 g Temp Pulse Resp BP Pulse Ox O2 Del Method 97.5 F L 52 L 20 H 124/78 97 Room Air 05/09/23 08:35 05/09/23 08:35 05/09/23 08:35 05/09/23 08:35 05/09/23 08:35 05/09/23 08:35 Operation Date: 05/09/23 09:40 Proposed Procedures p ON,EBUS, 12794, 15023, 68878, 20094, 56837, 56260, 96047, 33271, 12190, 66793, 52590, 544668, 27111,R91.8(Not Applicable) - Donny Duenas MD s Ebus(Not Applicable) - Donny RobrMD Familial anesthetic complications: None Was Beta Nitza taken within 24 hours: N/A Was Clonidine taken within 24 hours: N/A Last intake: Intake Last Liquid Date 05/08/23 Last Liquid Time 20:00 Last Solid Date 05/08/23 Last Solid Time 20:00 Social No alcohol and No tobacco Exam alert, oriented x 3, clear to auscultation bilaterally and regular rate & rhythm Airway Mallampati: Class II Dentition: full Pulmonary abstesosis CV/HEM Atrial Fibrillation and Hypertension TAA Metabolic Thyroid Disease Anesthetic Plan ASA status: 4 Anesthesia: General Risk of > 500 ml blood loss (7ml/kg in children): No Medications/Allergies Home Medications Medication Instructions Recorded Confirmed Last Taken Type cyclobenzaprine 10 mg tablet 10 mg PO BID PRN Pain 07/24/19 05/08/23 05/08/23 History multivitamin (One Daily 1 tab PO DAILY 07/24/19 05/08/23 05/08/23 History Multivitamin tablet) polyethylene glycol 3350 17 17 gm PO DAILY 07/24/19 05/08/23 05/08/23 History gram/dose oral powder (Miralax) tamsulosin 0.4 mg capsule (Flomax) 0.4 mg PO DAILY 07/24/19 05/08/23 05/08/23 History albuterol sulfate 90 mcg/actuation 1 inh inhalation ONCE PRN 07/25/19 05/08/23 05/08/23 History aerosol inhaler (ProAir HFA) Shortness Of Breath cetirizine 10 mg tablet (Zyrtec) 10 mg PO DAILY PRN Allergy Symptoms 07/25/19 05/08/23 05/08/23 History cholecalciferol (vitamin D3) 100 100 mcg PO DAILY 09/18/20 05/08/23 05/08/23 History mcg (4,000 unit) capsule (Vitamin D3) levothyroxine 100 mcg tablet 100 mcg PO DAILY 09/18/20 05/08/23 05/08/23 History (Synthroid) diltiazem HCl 120 mg 120 mg PO DAILY 12/04/20 05/08/23 05/08/23 History capsule,extended release 24 hr (Cardizem CD) sildenafil 100 mg tablet 100 mg PO DAILY PRN sexual 04/14/21 05/08/23 05/08/23 Rx activity #20 tabs oxycodone 15 mg tablet,crush 15 mg PO TID 30 days #90 tabs 06/29/21 05/08/23 05/08/23 Rx resistant,extended release 12 hr oxycodone 5 mg tablet 5 mg PO BID PRN pain 30 days #60 06/29/21 05/08/23 05/08/23 Rx tabs amlodipine 5 mg tablet 5 mg PO DAILY #90 tabs 07/05/22 05/08/23 05/08/23 Rx fluticasone 500 mcg-salmeterol 50 1 inh inhalation BID #60 ea 11/02/22 05/08/23 05/08/23 Rx mcg/dose blistr powdr for inhalation (Wixela Inhub) tiotropium bromide 2.5 2 puff inhalation DAILY #4 grams 11/02/22 05/08/23 05/08/23 Rx mcg/actuation mist for inhalation (Spiriva Respimat) Copolymer Orthotics #1 ea 01/02/23 03/08/23 05/08/23 Rx diclofenac sodium 1 % topical gel 2 g topical QID #100 grams 02/16/23 05/08/23 05/08/23 Rx (Voltaren Arthritis Pain) silver sulfadiazine 1 % topical 1 applic topical BID 2 weeks #50 02/16/23 05/08/23 05/08/23 Rx cream grams Allergies Allergy/AdvReac Type Severity Reaction Status Date / Time adhesive Allergy rash Verified 05/08/23 07:52 latex Allergy rash Verified 05/08/23 07:52 Penicillins Allergy ALGY-Anaphy Verified 05/08/23 07:52 laxis metoprolol AdvReac SLEEPLESS, Verified 05/08/23 07:52 FREEZING polyethylene glycol AdvReac RASH Verified 05/08/23 07:52 [From Golytely] potassium chloride AdvReac RASH Verified 05/08/23 07:52 [From Golytely] sodium [From Golytely] AdvReac RASH Verified 05/08/23 07:52 sodium bicarbonate AdvReac RASH Verified 05/08/23 07:52 [From Golytely] sodium chloride AdvReac RASH Verified 05/08/23 07:52 [From Golytely] Current Medications Generic Name Dose Route Start Last Admin Trade Name Freq PRN Reason Stop Dose Admin Sodium Chloride 1,000 mls @ 30 mls/hr 05/09/23 09:00 05/09/23 09:18 Sodium Chloride 0.9% IV 05/10/23 08:59 30 mls/hr .Q24H TESSIE Administration PFSH Anesthesia Medical History (Updated 05/02/23 @ 08:35 by Lurdes Jang LPN) Erectile dysfunction Prostate cancer Colon polyps Chronic low back pain Facet syndrome, lumbar Spinal stenosis, lumbar Polyneuropathy Surgical History H/O esophagogastroduodenoscopy (09/22/20) History of colonoscopy (09/22/20) 2018 Hx of decompressive lumbar laminectomy (~2011) Hx of lumbar discectomy (~06/16/16) Hx of nasal sinusotomy Hx of shoulder surgery RIGHT Family History Father , at age 82 Cancer prostate Mother , at age 91 No problems noted. Other Diabetes Social History Smoking and tobacco/nicotine status: former use of tobacco/nicotine Quit status (tobacco/nicotine): has quit using Year quit tobacco: 2016 [id number] Alcohol intake: never Substance/Drug Use: never Marital status: service: Yes Current occupational status: retired Do you think of yourself as: Straight/Heterosexual Data Anesthesia Cardiac Studies: Echocardiogram Ultrasound 08/28/20 Sestamibi Stress Test (Cardiology) 08/28/20 Cardiac Event Monitor 12/08/20
--- NOTE | 2023-05-09 09:44 | SC_ITS ---
WS: [id number] C-ARM RADIOGRAPHS CHEST; 2 IMAGES HISTORY: ION/EBUS Suspected malignancy COMPARISON: None available. Intraprocedural imaging with the C-arm during EBUS. IMPRESSION: Intraprocedural imaging during EBUS.
[2023-05-09] MEDS: lidocaine 1% INJ 10 mL (per mL) XX (10:29)
[2023-05-09 11:45] LABS: Apprearance, Bronch Wash Cloudy (CLEAR); Color, Bronc Wash Red; Cyto Order Verification Order Verified
--- NOTE | 2023-05-09 12:06 | P.OP_ITS ---
Operative Report Date of procedure: May 09, 2023 Procedure done: 69868 Dx Bronchoscope w/Washings or airway inspection 70660 Bx Bronchoscope w/Brushings or protected brushings 00317 Dx Bronchoscope w/BAL 64375 Bronch with computer image guided Navigational Bronchoscopy 31610 Bronchoscopy w/Transbronchial lung biopsy(s), single lobe 76481 Bronchoscopy w/Transbronchial needle aspiration biopsy(s), tracheal, main stem, and/or lobar bronchus 15714 Bronchoscopy w/ therapeutic aspiration of the tracheobronchial tree (clearance of airway secretions, removal of mucus plugs) 85955 EBUS Sampling 1 or 2 lymph nodes 99774 EBUS Diag or Interven Peripheral lesion (radial EBUS) Surgeon: Donny Duenas MD Brief History: Mason Slaughter is a 72 year old male with past medical history of COPD, chronic low back pain due to lumbar spinal stenosis adenocarcinoma of prostrate s/p radiation treatment 2018 follows up with ar for COPD. He has significant smoking history-1.5 pack/day for 40 years-quit 2016. PFTs December 2021-consistent with mild restriction.-Currently using Wixela 500 mcg 1 puff twice daily and Spiriva 2 puffs twice daily. And states it is helping. His functional capacity is limited by back pain and shortness of breath. Complains of low back pain and lately causing weakness in bilateral legs and is planning to undergo spinal decompression by neurosurgery. Patient Underwent lung cancer screening- -CT 10/30/2018 showed emphysema and prior granulomatous disease. -CT chest 01/14/2022 showed long-term stability 5 mm spiculated nodule medial right upper lobe -Annual low-dose CT January 2023 done at [facility]-I do not have the images but obtained the report-which reported 9.3 mm Groundglass nodule located in paravertebral RUL. There is another 7.6 mm nodule in anterior lateral infrahilar right lung. Lung RADS 4A suspicious and recommended 3-month follow- up CT -A 3-month follow-up CT on 04/27/2023 showed stable 5 mm medial right upper lobe nodule unchanged since 01/14/2022. However there is 15 mm right lower lobe groundglass nodule slightly larger than 01/14/2022. As groundglass opacities can be slow-growing adenocarcinoma in patient with chronic smoking history-I have discussed with patient about obtaining biopsies using navigational bronchoscopy as well as endobronchial ultrasound surveillance of hilar/mediastinal lymph nodes. I explained the possible complications including pneumothorax as well as bleeding. Patient verbalized understanding the indication, nature of the procedure, complications, alternatives and agreed to go ahead with the procedure. Today comes for the same. Denied any complaints.. Procedure: 39760 Dx Bronchoscope w/Washings or airway inspection 94175 Bx Bronchoscope w/Brushings or protected brushings 40930 Dx Bronchoscope w/BAL 16027 Bronch with computer image guided Navigational Bronchoscopy 32754 Bronchoscopy w/Transbronchial lung biopsy(s), single lobe 13021 Bronchoscopy w/Transbronchial needle aspiration biopsy(s), tracheal, main stem, and/or lobar bronchus 76814 Bronchoscopy w/ therapeutic aspiration of the tracheobronchial tree (clearance of airway secretions, removal of mucus plugs) 57383 EBUS Sampling 1 or 2 lymph nodes 13115 EBUS Diag or Interven Peripheral lesion (radial EBUS) Indication: Description of the procedure: The procedure was explained to the patient and the consent was obtained. The patient was brought to the OR. Anesthesia: The patient underwent endotracheal intubation for general anesthesia. Local anesthesia: The distal trachea-Mirtha, right and left mainstem bronchi were anesthetized with 1% lidocaine, 3 mL. Following induction of general anesthesia, the flexible bronchoscope was advanced through the ET tube. The lower trachea mucosa appeared normal, no endotracheal lesion was seen. The mirtha was sharp. The mirtha, the right and left mainstem bronchi are anesthetized with 1% lidocaine. In a systematic manner bilateral bronchial tree was then examined. The bronchoscope was then introduced into the right mainstem bronchus. The right upper lobe, right middle lobe and right lower lobe bronchi were examined up to the third subsegmental level and no abnormalities were identified.Mucosa appeared normal with no endobronchial lesion, active bleeding or mucous plug.There were significant mucus secretions which were suctioned right away.(09073). The bronchoscope was advanced into the left mainstem bronchus. The mucosa appeared normal with no endobronchial lesions. The left upper lobe, lingula and left lower lobe bronchi were examined up to the third subsegmental level and no abnormalities were identified. Mucosa appeared normal with no endobronchial lesion, active bleeding or mucous plug. There were some mucus secretions in left lower lobe-which were suctioned right away.(94482) After initial inspection as well as airway clearance with flexible bronchoscope(89906), ION robotic assisted navigational bronchoscope (76852) was introduced-and Right lower lobe Superior segment lesion was accessed. After confirming the location with radial EBUS (47444) with good concentric signal; under the fluoroscopy guidance -we were able to obtain biopsies using fine- needle, and forceps.There was some evidence of grade 2 bleeding-cold saline was instilled. BAL was also taken from Superior segment of Right lower lobe segment . After making sure there is no active bleeding navigational bronchoscope was retracted and introduced Endobronchial ultrasound EBUS (70950). With the help of EBUS, identified lymph nodes at Station 4L, station 11 L . Fine-needle aspiration biopsies were taken from lymph nodes at Station 4L, station 11 L (10669) After taking the biopsies EBUS retracted-diagnostic bronchoscope was introduced to check for any evidence of active bleeding. There was some evidence of bleeding-controlled with instillation of cold saline and diluted epinephrine. After making sure there is no active bleeding bronchoscope was retracted and procedure terminated. Samples: A. Right lowerlobe lesion 1. Total of 4 passes were made using needle aspiration(14228); we do not have onsite pathology and so all the material was placed in formalin for histopathology 2. Targeting the same area 4 passes were made using forceps (52095); we do not have onsite pathology and so all the material was placed in formalin for histopathology 3. Bronchoscope was wedged at the entrance of the Superior segment of right lower lobe, 17 mL of saline was instilled and returned 12 mL of bronchoalveolar lavage (78010). The fluid was mixed with blood and specks of tissue. Samples for cell count, cytology, cultures B. EBUS guided Fine-needle aspiration biopsies were taken from Station 4L, station 11 L (38514) 1. Total of 3 passes were made using needle aspiration(67763) from station 4L: all the material was placed in formalin and sent for histopathology 2. Total of 3 passes were made using needle aspiration(36583) from station 11 L; all the material was placed in formalin and sent for histopathology Complications: None.The patient was extubated and brought to the PACU in stable condition. Postprocedure chest x-ray: There is no evidence of pneumothorax Disposition: Patient can be discharged home in stable condition. Pt,is aware that I am going to call them to update final biopsy results once available. Related Problem List Diagnoses (1) Ground glass opacity present on imaging of lung: (2) Ex-smoker:
--- NOTE | 2023-05-09 12:22 | XR_ITS ---
WS: [id number] PORTABLE CHEST HISTORY: POST BRONCHOSCOPY BIOPSY RIGHT LOWER LOBE COMPARISON: 02/08/2022 Mild pulmonary hyperexpansion. Thin linear scar in the RIGHT lower lobe. No complications from the re cent biopsy. No pleural effusion or pneumothorax. Cardiac size: Normal. Mediastinum/Aorta: Mild atherosclerosis aorta. No osseous abnormality seen. IMPRESSION: 1. No pneumothorax status post lung biopsy. 2. Chronic emphysema and linear scar RIGHT lower lobe. Notified Donny Duenas MD at 05/09/2023 12:35 PM.
--- NOTE | 2023-05-09 13:15 | ANE.PACU2 ---
Inpatient post-anesthesia follow up: Airway intact: Yes Vital signs: Temperature 97.5 F Pulse Rate 52 Respiratory Rate 16 Blood Pressure 165/93 Pulse Oximetry 95 Oxygen Delivery Me thod Room Air Oxygen Flow Rate 6 Fraction of Inspir ed Oxygen Hydration adequate: Yes Nausea and vomiting: No Pain level: 1 Mental status: Baseline
[2023-05-09 15:13] LABS: Total Cells Counted Bronch 200
[2023-05-09 15:14] LABS: PATH Referral Yes
== END 2023-05-09 13:14 | disposition home or self-care (01) ==
PROVIDERS: PCP Nurse Practitioner; Visit Provider Internal Medicine Pulmonary Disease
PROC: 0BJ08ZZ Inspection of Tracheobronchial Tree, Via Natural or Artificial Opening Endoscopic (ICD-10-PCS; CPT 31622; principal; 2023-05-09 09:30)
PROC: BB4BZZZ Ultrasonography of Pleura (ICD-10-PCS; 2023-05-09 09:30)
DX: R06.02 Shortness of breath (principal); Z87.891 Personal history of nicotine dependence; R91.1 Solitary pulmonary nodule; J44.9 Chronic obstructive pulmonary disease, unspecified; G89.29 Other chronic pain; M48.061 Spinal stenosis, lumbar region without neurogenic claudication; Z85.46 Personal history of malignant neoplasm of prostate; Z92.3 Personal history of irradiation
CPT/HCPCS: 31623; 31624; 31627; 31628; 31629; 31645; 31652; 31654; 71045; 76000; 80503; 87070; 87077; 87186; 87205; 88112; 88305; 89050; J1100; J2405; J2704; J2710; J3010; J3490; J7030

== ENCOUNTER → 2023-05-22 12:27 | Outpatient (BNVA) | payer OTHER, SELFPAY | PROVIDERS: PCP Nurse Practitioner; Visit Provider Podiatrist Foot & Ankle Surgery | DX: L60.0 Ingrowing nail (principal); L60.3 Nail dystrophy | CPT/HCPCS: 11750 ==

== ENCOUNTER 2023-08-30 14:10 | Outpatient (CLI) | payer OTHER, SELFPAY ==
[2023-08-30 15:37] LABS: Free T4 Free Thyroxine 1.16 ng/dL (0.82-1.77); T3 Free 2.9 PG/ML (2.0-4.4); Thyroid Stimulating Hormone 3.49 uIU/mL (0.27-4.20)
== END 2023-08-30 14:11 | disposition home or self-care (01) ==
LOC: LAB 14:14
PROVIDERS: PCP Nurse Practitioner; Visit Provider Chiropractor
DX: E05.00 Thyrotoxicosis with diffuse goiter without thyrotoxic crisis or storm (principal); E06.3 Autoimmune thyroiditis
CPT/HCPCS: 36415; 84439; 84443; 84481

== ENCOUNTER → 2023-09-05 13:46 | Outpatient (BNVA) | payer OTHER, SELFPAY | PROVIDERS: PCP Nurse Practitioner; Visit Provider Internal Medicine | DX: I71.20 Thoracic aortic aneurysm, without rupture, unspecified (principal); E78.5 Hyperlipidemia, unspecified; J44.9 Chronic obstructive pulmonary disease, unspecified; I10 Essential (primary) hypertension; I48.91 Unspecified atrial fibrillation; Z87.891 Personal history of nicotine dependence | CPT/HCPCS: 99214 ==

== ENCOUNTER → 2023-09-06 10:35 | Outpatient (BNVA) | payer OTHER, SELFPAY | PROVIDERS: PCP Nurse Practitioner; Visit Provider Internal Medicine Pulmonary Disease | DX: J43.2 Centrilobular emphysema (principal); J44.9 Chronic obstructive pulmonary disease, unspecified; J92.0 Pleural plaque with presence of asbestos; Z87.891 Personal history of nicotine dependence | CPT/HCPCS: 99214 ==

== ENCOUNTER 2023-09-15 12:08 | Outpatient (CLI) | payer OTHER, SELFPAY ==
--- NOTE | 2023-09-15 12:12 | USCV_ITS ---
Mason Slaughter Age: 73 Gender: M : 1950 Exam Date: 09/15/2023 13:28 Ordering Phys: Jerald Rodrigues Technologist: [place] [facility] [place]ication: hrt dz BP: / HR: 61 Rhythm: Sinus Technical Quality: Adequate MEASUREMENTS (Male / Female) Normal Values 2D ECHO LVOT Diameter 2.6 cm LV Ejection Fraction MOD 2C 70.6 % LV Ejection Fraction 2C AL 71.6 % LA Diameter 4.3 cm RA Systolic Volume 4C AL 45.4 ml RA Systolic Volume 4C MOD 44.4 ml Aorta at Sinotubular Diameter 3.4 cm IVC Diameter 1.9 cm M-MODE LA Ao Ratio MM 1.2 AV Cusp Separation MM 2.5 cm DOPPLER AV Peak Velocity 159.0 cm/s LVOT Peak Velocity 147.0 cm/s AV Area Cont Eq vti 5.3 cm squared AV Area Cont Eq pk 5.0 cm squared MV Peak Velocity 95.0 cm/s MV Area PHT 2.3 cm squared Mitral E to A Ratio 1.5 TV Peak Velocity 145.0 cm/s TR Peak Velocity 185.0 cm/s TR Peak Gradient 13.7 mmHg Right Atrial Pressure 3.0 mmHg Pulmonary Artery Systolic Pressu 16.7 mmHg PV Peak Velocity 131.5 cm/s FINDINGS Left Ventricle Left ventricle is normal in size. LV systolic function is normal with EF of 55 to 60%. No regional wall motion abnormalities are seen. Right Ventricle Normal in size and function Right Atrium Normal in size. Interatrial septum is aneurysmal. Left Atrium Normal in size Mitral Valve Structurally normal mitral valve. Mild mitral regurgitation. Aortic Valve Structurally normal aortic valve. No significant stenosis or regurgitation. Tricuspid Valve Mild tricuspid regurgitation. Pulmonic Valve Trace pulmonic regurgitation. Pericardium Normal Aorta Ascending aorta is mildly dilated with diameter of 3.55cm IVC Appears to be normal CONCLUSIONS LV systolic function is normal with EF of 55 to 60%. Interatrial septum is aneurysmal. Mild mitral regurgitation Mild tricuspid regurgitation Trace pulmonic regurgitation Ascending aorta is mildly dilated with diameter of 3.55 cm. Compared to prior echocardiogram from 2020, LV systolic function is improved. Suraj Cardoza MD (Electronically Signed) Final Date: 23 September 2023 20:41 S
--- NOTE | 2023-09-15 12:12 | XR_ITS ---
WS: [id number] Examination: XR chest 2V* 75574 Reason for Exam: ISCHEMIC HEART DZ Date: September 15, 2023 Comparison: May 09, 2023 Findings: The heart is not enlarged. The mediastinum is not widened. The lungs are hyperinflated There is no pulmonary edema or large pleural effusion. Chronic changes are noted in the bases. Impression: Chronic changes are present. I see no cardiomegaly or failure.
== END 2023-09-15 12:09 | disposition home or self-care (01) ==
LOC: RAD 12:08
PROVIDERS: PCP Nurse Practitioner; Visit Provider Chiropractor
DX: I25.9 Chronic ischemic heart disease, unspecified (principal); I08.1 Rheumatic disorders of both mitral and tricuspid valves
CPT/HCPCS: 71046; 93306

== ENCOUNTER → 2023-10-02 13:14 | Outpatient (BNVA) | payer OTHER, SELFPAY | PROVIDERS: PCP Nurse Practitioner; Visit Provider Internal Medicine Pulmonary Disease | DX: J43.2 Centrilobular emphysema (principal); J92.0 Pleural plaque with presence of asbestos; Z87.891 Personal history of nicotine dependence; Z12.2 Encounter for screening for malignant neoplasm of respiratory organs | CPT/HCPCS: 99214 ==

== ENCOUNTER → 2024-04-03 12:27 | Outpatient (BNVA) | payer OTHER, SELFPAY | PROVIDERS: PCP Nurse Practitioner; Referring Provider Nurse Practitioner; Visit Provider Surgery | DX: K80.20 Calculus of gallbladder without cholecystitis without obstruction (principal); R03.0 Elevated blood-pressure reading, without diagnosis of hypertension | CPT/HCPCS: 99204; 99214 ==

== ENCOUNTER 2024-04-15 09:28 | Day surgery (SDC) | payer OTHER, SELFPAY ==
--- OUTSIDE RECORDS SUMMARY | 2024-04-04 09:17 | XMS_ITS | Patient Health Record ---
Author Name Unknown Organization [facility] Address [address] [place] [address] Care Team Providers Care Medical Numerical Control Operator Name Role Phone Selma Castillo Primary Care Provider Liane Martin Unavailable [phone] Allergies Allergen (clinical drug ingredient) Drug/Non Drug Allergy documented on EMR Reaction Allergy Type Onset Date Status Adhesive Unknown Allergy Active Penicillin Unknown Drug Allergy Active Reason For Referral No Information Medications Medication SIG (Take, Route, Frequency, Duration) Notes [...] capsule Orally O nce a day Active Social History Tobacco Use: Social History Observation Description Date Details (start date - stop date) Former Smoker NA - NA xTobacco Use/Smoking Question Answer Notes Are you a former smoker How long has it been since you last smoked? > 10 years Alcohol Screen (Audit-C) Question Answer Notes Did you have a drink containing alcohol in the p ast year? No Points 0 Interpretation Negative Problems Problem Type SNOMED Code ICD Code Onset Dates Problem Status W/U Status Risk Notes Problem 415199615 Lumbar spondylosis (M47.816) Active confirmed Problem 146298771 Abnormal chest xray (R93.89) Active confirmed Plan Of Treatment Pending Test Test Name Order Date Prothrombin Time 69313 11/17/2020 Basic Metabolic Panel (BMP) 95953 2020 Basic Metabolic Panel (BMP) 34809 2020 Blood Urea Nitrogen (BUN) 59847 11/21/19 21 CBC w\ Auto Diff 71176 11/17/2020 CBC w\ Auto Diff 62419 11/22/2020 Comprehensive Metabolic Panel 03707 11/10 Creatinine (B) 33744 11/20/2020 Magnesium (B) 25873 11/22/2020 Partial Thromboplastin Time 15762 2020 Phosphorus (B) 07664 11/22/2020 Thyroid Stimulating Hormone (TSH) 88445 11/22/2020 Troponin-I 83314 11/22/2020 Troponin-I 29314 11/22/2020 Troponin-I 20389 11/22/2020 CBC Reflex Man Diff 52112, 35241 021 Chest PA/Lat-06190 11/17/2020 CT Chest w/ + w/o Contrast diagnostic-71 270 11/23/2020 CT Chest w/ Contrast diagnostic-17836 Lumbosacral Spine AP/Lat-76705 XR Outside CD 09/17/2020 XR Outside CD 09/17/2020 XR Outside CD 09/17/2020 Electrocardiogram 12 Lead Tracing-89723 11/17/2020 WBC Auto Diff--56108 11/20/2020 zzzFluoroscopy 11/20/2020 zzzMRI Outside CD 10/09/2020 Insurance Providers Payer Name Payer Address Payer Phone Subscriber Number Group Number Insured Name Patient Relationship to Insured Coverage Start Date Coverage End Date [employer] [address] [place] [phone] [id number] Mason Slaughter Self - patient is the insured Medical (General) History Medical History History ICD Code measles mumps chicken pox pneumonia heart disease arthritis migraine headaches prostate cancer back trouble high blood pressure asthma colon polyps depression fibromyalgia hypothyroidism osteoporosis Surgical History Surgery Date(Month/Year) neck tumor thoracic back surgery 06/2000 lumbar decompression 11/2020
[2024-04-15] VITALS (12 sets, daily range): BP systolic 129–158; BP diastolic 65–108; PULSE 59–80; RESP 12–18; TEMP 36.5–36.6; O2SAT 94–100; BMI 28.5
--- NOTE | 2024-04-15 09:06 | P.HPUD_ITS ---
Surgery/Procedure H&P Update DATE OF PROCEDURE: April 15, 2024 DATE H&P PERFORMED: 04/03/24 H&P UPDATE INFORMATION: I have reviewed H&P completed within last 30 days, I have examined patient prior to procedure, No changes to prior documentation and [place] [facility] [place] date indicated PLANNED PROCEDURE: Operation Date: 04/15/24 11:05 Proposed Procedures p Laparoscopic Cholecystectomy 90281, K80.20(Not Applicable) - Mendoza Terrell MD
--- OUTSIDE RECORDS SUMMARY | 2024-04-15 09:30 | XMS_ITS ---
Author Name Unknown Organization [facility] Address [address] [place] [address] Care Team Providers Care Engraver Copperplate Name Role Phone Selma Castillo Primary Care Provider Liane Martin Unavailable [phone] Migration, Provider Unavailable Unavailable Allergies Allergen (clinical drug ingredient) Drug/Non Drug Allergy documented on EMR Reaction Allergy Type Onset Date Status polyethylene glycol 3350 / potassium chloride / sodium bicarbonate / sodium chloride / sodium sulfate Golytely Unknown Drug Allergy Active Adhesive Unknown Allergy Active Penicillin Unknown Drug Allergy Active Substance with penicillin structure and antibacterial mechanism of action (substance) Penicillins Unknown Drug Allergy Active REASON FOR VISIT EMR-Danny Medications Medication SIG (Take, Route, Frequency, Duration) Notes Start Date End Date Status Amlodipine *Reorder from Medispan for eRx and Interaction Alerts* Active tamsulosin *Reorder from [facility] for eRx and Interaction Alerts* Active cyclobenzaprine *Reorder from [facility] for eRx and Interaction Alerts* Active dilTIAZem HCl *Pick strength-f orm from [facility] for eRX* Active [facility]othyroxine [facility]* Active Encounters Encounter Location Date Provider Diagnosis Migrated_Facility 0 0 04/07/2024 Provider Migration Plan Of Treatment Next Appt Details Provider Name:Kelsie mccann, 04/25/2024 01:00:00 PM, [address] [place], [address], Progress Notes * Yolette SLAUGHTEROB:1950 ( 73 yo M)Acc No.[id number]:04/07/2024 Patient:Mason RAPHAEL :1950???Age:73 Y???Sex:Male Address:[facility] [place] [address] Subjective: * Chief Complaints: * ???EMR-Danny * Medical History:? * Surgical History:?Neck surge ry Since 1981Back surgery Since 2020 * Hospitalization/Major Diagno stic Procedure:? * Family History:?Migrated Fam meliza History: : Cancer, c hronic pain, f ibromyalgia.? * Social History:?Migrated Social History:?Migrated Social History: Alcoholic beverages? - No, A pplying for disability? - No, C urrently on disability? - Yes, D rug or substance abuse? - No, E ducation - Grade School, e xposure to toxins/poisonous substances at work - No, I am interested in quitting. - No, I f yes, frequency of alcoholic beverages - 1 drink per day, I nvolved in any legal proceedings or lawsuits? - No, M arital Status - , N onprescription drug use? - No, P articipation in detoxification or rehabilitation - No, S moked in the past? - No, S moking - No, S moking status (MU) - <BLANK>, W orking currently? - No. * Medications:?Takingcyclobenz aprine , Notes to Pharmacist: *Reorder from Medispan for eRx and Interaction Alerts*dilTIAZem HCl , Notes to Pharmacist: *Pick strength- form from Med[facility]pan for eRX*Levothyroxine , Notes to Pharmacist: *Reorder from [facility] for eRx and Interaction Alerts*Amlodipine , Notes to Pharmacist: *Reorder from [facility] for eRx and Interaction Alerts*tamsulosin , Notes to Pharmacist: *Reorder from [facility] for eRx and Interaction Alerts*Taking cyclobenzaprine , Notes to Pharmacist: *Reorder from [facility] for eRx and Interaction Alerts*Taking dilTIAZem HCl , Notes to Pharmacist: *Pick strength-form from Med[facility]pan for eRX*Taking Levothyroxine , Notes to Pharmacist: *Reorder from [facility] for eRx and Interaction Alerts*Taking Amlodipine , Notes to Pharmacist: [facility]*Taking tamsulosin , Notes to Pharmacist: *[facility]* * Allergies:?Golytely: Allergy Penicillins: AllergyPenicillin: AllergyAdhesive: Allergy Objective: * Vitals:? * Physical Examination:? Assessment: Plan: * Treatment: * Procedure Codes:? * * Date:?
--- OUTSIDE RECORDS SUMMARY | 2024-04-15 09:30 | XMS_ITS ---
Author Name Unknown Organization [facility] Address [address] [place] [address] Care Team Providers Care Police Cadet Name Role Phone Selma Castillo Primary Care Provider Sherry young Ashvin Zuritai Unavailable [phone] Kelsie Morgan Unavailable [phone] REASON FOR VISIT procedure follow up refill/uds Encounters Encounter Location Date Provider Diagnosis [facility] [place] [address] [place] [address] 03/14/2024 Kelsie Morgan Plan Of Treatment Next Appt Details Provider Name:Kelsie mccann, 04/25/2024 01:00:00 PM, [address] [place], [address], Progress Notes * Yolette SLAUGHTEROB:1950 ( 73 yo M)Acc No.[id number]:03/14/2024 Patient:?Mason SLAUGHTER Provider:?CAROLINA Wilson :1950???Age:73 Y???Sex:Male Sergio e:03/14/2024 Address:[address] [place] [address] Pcp:Selma Castillo Subjective: * Chief Complaints: * ???1. Procedure follow up re fill/uds. * Medical History:? Objective: * Vitals:? Assessment: Plan: * Treatment: Forms: * Billing Information: * Visit Code:? * Procedure Codes:? * Electronic signature of Lou Morgan APRN on 04/15/2024 at 09:30 AM PREPARATION DEPARTMENT SUPERVISOR Sign off status: Pending * Provider:?CAROLINA Wilson Date:? Generated for Anna davis/Gini/Sofya on:?04/15/2024 09:30 AM PREPARATION DEPARTMENT SUPERVISOR
--- OUTSIDE RECORDS SUMMARY | 2024-04-15 09:30 | XMS_ITS | Patient Health Record ---
Author Name Unknown Organization [facility] Address [address] [place] [address] Care Team Providers Care Manager [employer] Name Role Phone Selma Castillo Primary Care Provider Liane Martin Unavailable [phone] Migration, Provider Unavailable Unavailable Ant Mca Unavailable [phone] Kelsie Morgan Unavailable [phone] Allergies Allergen (clinical drug ingredient) Drug/Non Drug Allergy documented on EMR Reaction Allergy Type Onset Date Status polyethylene glycol 3350 / potassium chloride / sodium bicarbonate / sodium chloride / sodium sulfate Golytely Unknown Drug Allergy Active Adhesive Unknown Allergy Active Penicillin Unknown Drug Allergy Active Substance with penicillin structure and antibacterial mechanism of action (substance) Penicillins Unknown Drug Allergy Active Results Component Value Reference Range Notes X-Ray Image Reviewed date:07/18/2023 12:00:00 AM Interpretation: Performing Lab: Notes/Report: X-Ray Image Reviewed date:08/22/2023 12:00:00 AM Interpretation: Performing Lab: Notes/Report: Reason For Referral No Information Medications Medication SIG (Take, Route, Frequency, Duration) Notes Start Date End Date Status tamsulosin *Reorder from [facility] for eRx and Interaction Alerts* Active Levothyroxine *Reorder from [facility] for eRx and Interaction Alerts* Active Symbicort 160-4.5 MCG/ACT 2 puffs Inhalation Twice a day Active ProAir HFA 108 (90 Base) MCG/ACT 1 puff as needed Inhalation every 4 hrs Active OxyCONTIN 20 MG 1 tablet Orally every 12 hrs Active Amlodipine *Reorder from [facility] for eRx and Interaction Alerts* Active MiraLax 17 GM 1 packet mixed with 8 ounces of fluid Orally Once a day Active cyclobenzaprine *Reorder from [employer] for eRx and Interaction Alerts* Active dilTIAZem HCl *Pick strength-form from [employer] for eRX* Active oxyCODONE HCl 5 MG 1 tablet as needed Orally every 6 hrs Active Levothyroxine Sodium 100 MCG 1 tablet in the morning on an empty stomach Orally Once a day Active Cyclobenzaprine HCl 10 MG 1 tablet at bedtime as needed Orally Once a day Active Temazepam Active Vitamin D3 Active ZyrTEC Active Spiriva Respimat Act kenya Tamsulosin HCl 0.4 MG 1 capsule Orally Once a day Active Social History Tobacco Use: [...] Problem Status W/U Status Risk Notes Problem 783492090 Lumbar spondylosis (M47.816) Active confirmed Problem 254828427 Abnormal chest xray (R93.89) Active confirmed Vital Signs Height-cm 187.96 cm 12/21/2023 Weight-kg 99.79 kg 12/21/2023 Height 74.00 in 12/21/2023 Weight 220.00 lbs 12/21/2023 BMI 28 kg/m2 12/21/2023 Procedures Procedure Date Ordered Date Performed Result Body Sit e NERVE BLOCK 07/18/2023 07/18/2023 N/A EPIDURAL/SPINAL 08/22/2023 08/22/2023 N/A Encounters Encounter Location Date Provider Diagnosis Migrated_Facility 0 0 05/10/2023 Provider Migration 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 ; Chronic pain syndrome G89.4 ; Other spondylosis with radiculopathy, lumbosacral region M47.27 ; Intervertebral disc disorders with radiculopathy, lumbar region M51.16 ; Radiculopathy, thoracic region M54.14 ; Postlaminectomy syndrome, not elsewhere classified M96.1 ; Unspecified abnormalities of gait and mobility R26.9 ; roasterman (current) use of opiate analgesic Z79.891 and Spinal stenosis, lumbar region without neurogenic claudication M48.061 Migrated_Facility 0 0 05/16/2023 Provider Migration Opioid dependence, uncomplicated F11.20 ; 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 ; Chronic pain syndrome G89.4 ; Other spondylosis with radiculopathy, lumbosacral region M47.27 ; Intervertebral disc disorders with radiculopathy, lumbar region M51.16 ; Radiculopathy, thoracic region M54.14 ; Postlaminectomy syndrome, not elsewhere classified M96.1 ; Unspecified abnormalities of gait and mobility R26.9 ; roasterman (current) use of opiate analgesic Z79.891 and Spinal stenosis, lumbar region without neurogenic claudication M48.061 Migrated_Facility 0 0 05/18/2023 Provider Migration Opioid dependence, uncomplicated F11.20 ; 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 ; Chronic pain syndrome G89.4 ; Other spondylosis with radiculopathy, lumbosacral region M47.27 ; Intervertebral disc disorders with radiculopathy, lumbar region M51.16 ; Radiculopathy, thoracic region M54.14 ; Postlaminectomy syndrome, not elsewhere classified M96.1 ; Unspecified abnormalities of gait and mobility R26.9 ; long-term (current) use of opiate analgesic Z79.891 and Spinal stenosis, lumbar region without neurogenic claudication M48.061 Migrated_Facility 0 0 05/25/2023 Provider Migration Opioid dependence, uncomplicated F11.20 ; 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 ; Chronic pain syndrome G89.4 ; Other spondylosis with radiculopathy, lumbosacral region M47.27 ; Intervertebral disc disorders with radiculopathy, lumbar region M51.16 ; Radiculopathy, thoracic region M54.14 ; Postlaminectomy syndrome, not elsewhere classified M96.1 ; Unspecified abnormalities of gait and mobility R26.9 ; long-term (current) use of opiate analgesic Z79.891 and Spinal stenosis, lumbar region without neurogenic claudication M48.061 Migrated_Facility 0 0 06/08/2023 Provider Migration Opioid dependence, uncomplicated F11.20 ; 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 ; Chronic pain syndrome G89.4 ; Other spondylosis with radiculopathy, lumbosacral region M47.27 ; Intervertebral disc disorders with radiculopathy, lumbar region M51.16 ; Radiculopathy, thoracic region M54.14 ; Postlaminectomy syndrome, not elsewhere classified M96.1 ; Unspecified abnormalities of gait and mobility R26.9 ; long-term (current) use of opiate analgesic Z79.891 and Spinal stenosis, lumbar region without neurogenic claudication M48.061 Migrated_Facility 0 0 07/06/2023 Provider Migration Opioid dependence, uncomplicated F11.20 ; 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 ; Chronic pain syndrome G89.4 ; Other spondylosis with radiculopathy, lumbosacral region M47.27 ; Intervertebral disc disorders with radiculopathy, lumbar region M51.16 ; Radiculopathy, thoracic region M54.14 ; Postlaminectomy syndrome, not elsewhere classified M96.1 ; Unspecified abnormalities of gait and mobility R26.9 ; roasterman (current) use of opiate analgesic Z79.891 and Spinal stenosis, lumbar region without neurogenic claudication M48.061 Migrated_Facility 0 0 07/18/2023 Provider Migration Opioid dependence, uncomplicated F11.20 ; 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 ; Chronic pain syndrome G89.4 ; Other spondylosis with radiculopathy, lumbosacral region M47.27 ; Intervertebral disc disorders with radiculopathy, lumbar region M51.16 ; Radiculopathy, thoracic region M54.14 ; Postlaminectomy syndrome, not elsewhere classified M96.1 ; Unspecified abnormalities of gait and mobility R26.9 ; long-term (current) use of opiate analgesic Z79.891 and Spinal stenosis, lumbar region without neurogenic claudication M48.061 Migrated_Facility 0 0 08/03/2023 Provider Migration Opioid dependence, uncomplicated F11.20 ; 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 ; Chronic pain syndrome G89.4 ; Other spondylosis with radiculopathy, lumbosacral region M47.27 ; Intervertebral disc disorders with radiculopathy, lumbar region M51.16 ; Radiculopathy, thoracic region M54.14 ; Postlaminectomy syndrome, not elsewhere classified M96.1 ; Unspecified abnormalities of gait and mobility R26.9 ; roasterman (current) use of opiate analgesic Z79.891 and Spinal stenosis, lumbar region without neurogenic claudication M48.061 Migrated_Facility 0 0 08/22/2023 Provider Migration Opioid dependence, uncomplicated F11.20 ; 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 ; Chronic pain syndrome G89.4 ; Other spondylosis with radiculopathy, lumbosacral region M47.27 ; Intervertebral disc disorders with radiculopathy, lumbar region M51.16 ; Radiculopathy, thoracic region M54.14 ; Postlaminectomy syndrome, not elsewhere classified M96.1 ; Unspecified abnormalities of gait and mobility R26.9 ; long-term (current) use of opiate analgesic Z79.891 and Spinal stenosis, lumbar region without neurogenic claudication M48.061 Migrated_Facility 0 0 09/27/2023 Provider Migration Opioid dependence, uncomplicated F11.20 ; 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 ; Chronic pain syndrome G89.4 ; Other spondylosis with radiculopathy, lumbosacral region M47.27 ; Intervertebral disc disorders with radiculopathy, lumbar region M51.16 ; Radiculopathy, thoracic region M54.14 ; Postlaminectomy syndrome, not elsewhere classified M96.1 ; Unspecified abnormalities of gait and mobility R26.9 ; roasterman (current) use of opiate analgesic Z79.891 and Spinal stenosis, lumbar region without neurogenic claudication M48.061 Migrated_Facility 0 0 10/25/2023 Provider Migration Opioid dependence, uncomplicated F11.20 ; 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 ; Chronic pain syndrome G89.4 ; Other spondylosis with radiculopathy, lumbosacral region M47.27 ; Intervertebral disc disorders with radiculopathy, lumbar region M51.16 ; Radiculopathy, thoracic region M54.14 ; Postlaminectomy syndrome, not elsewhere classified M96.1 ; Unspecified abnormalities of gait and mobility R26.9 ; roasterman (current) use of opiate analgesic Z79.891 and Spinal stenosis, lumbar region without neurogenic claudication M48.061 Migrated_Facility 0 0 11/23/2023 Provider Migration Opioid dependence, uncomplicated F11.20 ; 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 ; Chronic pain syndrome G89.4 ; Other spondylosis with radiculopathy, lumbosacral region M47.27 ; Intervertebral disc disorders with radiculopathy, lumbar region M51.16 ; Radiculopathy, thoracic region M54.14 ; Postlaminectomy syndrome, not elsewhere classified M96.1 ; Unspecified abnormalities of gait and mobility R26.9 ; long-term (current) use of opiate analgesic Z79.891 and Spinal stenosis, lumbar region without neurogenic claudication M48.061 [facility] [address] [place] [address] 12/21/2023 Kelsie Morgan [facility] [address] [place] [address] 01/25/2024 Kelsie Morgan [facility] [address] [address] 02/06/2024 Ant Mac [facility] [address] [place] [address] 03/14/2024 Kelsie Morgan Migrated_Facility 0 0 04/06/2024 Provider Migration Migrated_Facility 0 0 04/07/2024 Provider Migration Assessments Encounter Date Diagnosis (ICD Code) Assessment Notes Treat ment Notes Treatment Clinical Notes 05/10/2023 Other specified mononeuropathies (ICD-10 - G58.8) 05/10/2023 Chronic pain syndrom e (ICD-10 - G89.4) 05/10/2023 Other spondylosis wi th radiculopathy, lumbosacral region (ICD-10 - M47.27) 05/10/2023 Intervertebral disc disorders with radiculopathy, lumbar region (ICD-10 - M51.16) 05/10/2023 Radiculopathy, thora cic region (ICD-10 - M54.14) 05/10/2023 Postlaminectomy syndrome, not elsewhere classified (ICD-10 - M96.1) 05/10/2023 Unspecified abnormalities of gait and mobility (ICD-10 - R26.9) 05/10/2023 long-term (current) use of opiate analgesic (ICD-10 - Z79.891) 05/10/2023 Spinal stenosis, lum bar region without neurogenic claudication (ICD-10 - M48.061) 05/16/2023 Opioid dependence, uncomplicated (ICD-10 - F11.20) 05/16/2023 Other specified mononeuropathies (ICD-10 - G58.8) 05/16/2023 Chronic pain syndrom e (ICD-10 - G89.4) 05/16/2023 Other spondylosis wi th radiculopathy, lumbosacral region (ICD-10 - M47.27) 05/16/2023 Intervertebral disc disorders with radiculopathy, lumbar region (ICD-10 - M51.16) 05/16/2023 Radiculopathy, thora cic region (ICD-10 - M54.14) 05/16/2023 Postlaminectomy syndrome, not elsewhere classified (ICD-10 - M96.1) 05/16/2023 Unspecified abnormalities of gait and mobility (ICD-10 - R26.9) 05/16/2023 roasterman (current) use of opiate analgesic (ICD-10 - Z79.891) 05/16/2023 Spinal stenosis, lum bar region without neurogenic claudication (ICD-10 - M48.061) 06/08/2023 Opioid dependence, uncomplicated (ICD-10 - F11.20) 06/08/2023 Other specified mononeuropathies (ICD-10 - G58.8) 06/08/2023 Chronic pain syndrom e (ICD-10 - G89.4) 06/08/2023 Other spondylosis wi th radiculopathy, lumbosacral region (ICD-10 - M47.27) 06/08/2023 Intervertebral disc disorders with radiculopathy, lumbar region (ICD-10 - M51.16) 06/08/2023 Radiculopathy, thora cic region (ICD-10 - M54.14) 06/08/2023 Postlaminectomy syndrome, not elsewhere classified (ICD-10 - M96.1) 06/08/2023 Unspecified abnormalities of gait and mobility (ICD-10 - R26.9) 06/08/2023 long-term (current) use of opiate analgesic (ICD-10 - Z79.891) 06/08/2023 Spinal stenosis, lum bar region without neurogenic claudication (ICD-10 - M48.061) 07/18/2023 Opioid dependence, uncomplicated (ICD-10 - F11.20) 07/18/2023 Other specified mononeuropathies (ICD-10 - G58.8) 07/18/2023 Chronic pain syndrom e (ICD-10 - G89.4) 07/18/2023 Other spondylosis wi th radiculopathy, lumbosacral region (ICD-10 - M47.27) 07/18/2023 Intervertebral disc disorders with radiculopathy, lumbar region (ICD-10 - M51.16) 07/18/2023 Radiculopathy, thora cic region (ICD-10 - M54.14) 07/18/2023 Postlaminectomy syndrome, not elsewhere classified (ICD-10 - M96.1) 07/18/2023 Unspecified abnormalities of gait and mobility (ICD-10 - R26.9) 07/18/2023 roasterman (current) use of opiate analgesic (ICD-10 - Z79.891) 07/18/2023 Spinal stenosis, lum bar region without neurogenic claudication (ICD-10 - M48.061) 05/25/2023 Opioid dependence, uncomplicated (ICD-10 - F11.20) 05/25/2023 Other specified mononeuropathies (ICD-10 - G58.8) 05/25/2023 Chronic pain syndrom e (ICD-10 - G89.4) 05/25/2023 Other spondylosis wi th radiculopathy, lumbosacral region (ICD-10 - M47.27) 05/25/2023 Intervertebral disc disorders with radiculopathy, lumbar region (ICD-10 - M51.16) 05/25/2023 Radiculopathy, thora cic region (ICD-10 - M54.14) 05/25/2023 Postlaminectomy syndrome, not elsewhere classified (ICD-10 - M96.1) 05/25/2023 Unspecified abnormalities of gait and mobility (ICD-10 - R26.9) 05/25/2023 roasterman (current) use of opiate analgesic (ICD-10 - Z79.891) 05/25/2023 Spinal stenosis, lum bar region without neurogenic claudication (ICD-10 - M48.061) 08/22/2023 Opioid dependence, uncomplicated (ICD-10 - F11.20) 08/22/2023 Intercostal neuropat hy (ICD-10 - G58.0) 08/22/2023 Chronic pain syndrom e (ICD-10 - G89.4) 08/22/2023 Other spondylosis wi th radiculopathy, lumbosacral region (ICD-10 - M47.27) 08/22/2023 Intervertebral disc disorders with radiculopathy, lumbar region (ICD-10 - M51.16) 08/22/2023 Radiculopathy, thora cic region (ICD-10 - M54.14) 08/22/2023 Postlaminectomy syndrome, not elsewhere classified (ICD-10 - M96.1) 08/22/2023 Unspecified abnormalities of gait and mobility (ICD-10 - R26.9) 08/22/2023 long-term (current) use of opiate analgesic (ICD-10 - Z79.891) 08/22/2023 Spinal stenosis, lum bar region without neurogenic claudication (ICD-10 - M48.061) 08/03/2023 Opioid dependence, uncomplicated (ICD-10 - F11.20) 08/03/2023 Intercostal neuropat hy (ICD-10 - G58.0) 08/03/2023 Chronic pain syndrom e (ICD-10 - G89.4) 08/03/2023 Other spondylosis wi th radiculopathy, lumbosacral region (ICD-10 - M47.27) 08/03/2023 Intervertebral disc disorders with radiculopathy, lumbar region (ICD-10 - M51.16) 08/03/2023 Radiculopathy, thora cic region (ICD-10 - M54.14) 08/03/2023 Postlaminectomy syndrome, not elsewhere classified (ICD-10 - M96.1) 08/03/2023 Unspecified abnormalities of gait and mobility (ICD-10 - R26.9) 08/03/2023 roasterman (current) use of opiate analgesic (ICD-10 - Z79.891) 08/03/2023 Spinal stenosis, lum bar region without neurogenic claudication (ICD-10 - M48.061) 10/25/2023 Opioid dependence, uncomplicated (ICD-10 - F11.20) 10/25/2023 Intercostal neuropat hy (ICD-10 - G58.0) 10/25/2023 Chronic pain syndrom e (ICD-10 - G89.4) 10/25/2023 Other spondylosis wi th radiculopathy, lumbosacral region (ICD-10 - M47.27) 10/25/2023 Intervertebral disc disorders with radiculopathy, lumbar region (ICD-10 - M51.16) 10/25/2023 Radiculopathy, thora cic region (ICD-10 - M54.14) 10/25/2023 Postlaminectomy syndrome, not elsewhere classified (ICD-10 - M96.1) 10/25/2023 Unspecified abnormalities of gait and mobility (ICD-10 - R26.9) 10/25/2023 long-term (current) use of opiate analgesic (ICD-10 - Z79.891) 10/25/2023 Spinal stenosis, lum bar region without neurogenic claudication (ICD-10 - M48.061) 11/23/2023 Opioid dependence, uncomplicated (ICD-10 - F11.20) 11/23/2023 Intercostal neuropat hy (ICD-10 - G58.0) 11/23/2023 Chronic pain syndrom e (ICD-10 - G89.4) 11/23/2023 Other spondylosis wi th radiculopathy, lumbosacral region (ICD-10 - M47.27) 11/23/2023 Intervertebral disc disorders with radiculopathy, lumbar region (ICD-10 - M51.16) 11/23/2023 Radiculopathy, thora cic region (ICD-10 - M54.14) 11/23/2023 Postlaminectomy syndrome, not elsewhere classified (ICD-10 - M96.1) 11/23/2023 Unspecified abnormalities of gait and mobility (ICD-10 - R26.9) 11/23/2023 roasterman (current) use of opiate analgesic (ICD-10 - Z79.891) 11/23/2023 Spinal stenosis, lum bar region without neurogenic claudication (ICD-10 - M48.061) 05/18/2023 Opioid dependence, uncomplicated (ICD-10 - F11.20) 05/18/2023 Other specified mononeuropathies (ICD-10 - G58.8) 05/18/2023 Chronic pain syndrom e (ICD-10 - G89.4) 05/18/2023 Other spondylosis wi th radiculopathy, lumbosacral region (ICD-10 - M47.27) 05/18/2023 Intervertebral disc disorders with radiculopathy, lumbar region (ICD-10 - M51.16) 05/18/2023 Radiculopathy, thora cic region (ICD-10 - M54.14) 05/18/2023 Postlaminectomy syndrome, not elsewhere classified (ICD-10 - M96.1) 05/18/2023 Unspecified abnormalities of gait and mobility (ICD-10 - R26.9) 05/18/2023 roasterman (current) use of opiate analgesic (ICD-10 - Z79.891) 05/18/2023 Spinal stenosis, lum bar region without neurogenic claudication (ICD-10 - M48.061) 09/27/2023 Opioid dependence, uncomplicated (ICD-10 - F11.20) 09/27/2023 Intercostal neuropat hy (ICD-10 - G58.0) 09/27/2023 Chronic pain syndrom e (ICD-10 - G89.4) 09/27/2023 Other spondylosis wi th radiculopathy, lumbosacral region (ICD-10 - M47.27) 09/27/2023 Intervertebral disc disorders with radiculopathy, lumbar region (ICD-10 - M51.16) 09/27/2023 Radiculopathy, thora cic region (ICD-10 - M54.14) 09/27/2023 Postlaminectomy syndrome, not elsewhere classified (ICD-10 - M96.1) 09/27/2023 Unspecified abnormalities of gait and mobility (ICD-10 - R26.9) 09/27/2023 long-term (current) use of opiate analgesic (ICD-10 - Z79.891) 09/27/2023 Spinal stenosis, lum bar region without neurogenic claudication (ICD-10 - M48.061) 07/06/2023 Opioid dependence, uncomplicated (ICD-10 - F11.20) 07/06/2023 Intercostal neuropat hy (ICD-10 - G58.0) 07/06/2023 Chronic pain syndrom e (ICD-10 - G89.4) 07/06/2023 Other spondylosis wi th radiculopathy, lumbosacral region (ICD-10 - M47.27) 07/06/2023 Intervertebral disc disorders with radiculopathy, lumbar region (ICD-10 - M51.16) 07/06/2023 Radiculopathy, thora cic region (ICD-10 - M54.14) 07/06/2023 Postlaminectomy syndrome, not elsewhere classified (ICD-10 - M96.1) 07/06/2023 Unspecified abnormalities of gait and mobility (ICD-10 - R26.9) 07/06/2023 roasterman (current) use of opiate analgesic (ICD-10 - Z79.891) 07/06/2023 Spinal stenosis, lum bar region without neurogenic claudication (ICD-10 - M48.061) Plan Of Treatment Pending Test Test Name Order Date Prothrombin Time 97049 11/17/2020 Basic Metabolic Panel (BMP) 14462 2020 Basic Metabolic Panel (BMP) 93940 2020 Blood Urea Nitrogen (BUN) 66650 11/21/19 21 CBC w\ Auto Diff 56739 11/17/2020 CBC w\ Auto Diff 85561 11/22/2020 Comprehensive Metabolic Panel 92421 11/10 Creatinine (B) 45812 11/20/2020 Magnesium (B) 94206 11/22/2020 Partial Thromboplastin Time 34528 2020 Phosphorus (B) 13417 11/22/2020 Thyroid Stimulating Hormone (TSH) 00006 11/22/2020 Troponin-I 58917 11/22/2020 Troponin-I 44716 11/22/2020 Troponin-I 31003 11/22/2020 CBC Reflex Man Diff 39735, 30054 021 Chest PA/Lat-67519 11/17/2020 CT Chest w/ + w/o Contrast diagnostic-71 270 11/23/2020 CT Chest w/ Contrast diagnostic-21352 Lumbosacral Spine AP/Lat-36454 XR Outside CD 09/17/2020 XR Outside CD 09/17/2020 XR Outside CD 09/17/2020 Electrocardiogram 12 Lead Tracing-72692 11/17/2020 WBC Auto Diff--03363 11/20/2020 zzzFluoroscopy 11/20/2020 zzzMRI Outside CD 10/09/2020 Next Appt Details Provider Name:Kelsie mccann, 04/25/2024 01:00:00 PM, [address] [place], [address], Insurance Providers Payer Name Payer Address Payer Phone Subscriber Number Group Number Insured Name Patient Relationship to Insured Coverage Start Date Coverage End Date [employer] [address] [place] [phone] [id number] Mason Slaughter Self - patient is the insured Medical (General) History Medical History History ICD Code measles mumps chicken pox pneumonia heart disease arthritis migraine headaches prostate cancer back trouble high blood pressure asthma colon polyps depression fibromyalgia hypothyroidism osteoporosis Surgical History Surgery Date(Month/Year) neck tumor thoracic back surgery 06/2000 lumbar decompression 11/2020 Neck surgery Since 1981 Back surgery Since 2020
--- OUTSIDE RECORDS SUMMARY | 2024-04-15 09:30 | XMS_ITS ---
Author Name Unknown Organization [facility] Address [address] [place] [address] Care Team Providers Care Supervisor [employer] Name Role Phone Selma Castillo Primary Care Provider Liane Martin Unavailable [phone] Migration, Provider Unavailable Unavailable REASON FOR VISIT EMR-Danny Encounters Encounter Location Date Provider Diagnosis Migrated_Facility 0 0 04/06/2024 Provider Migration Plan Of Treatment Medication Medication Name Sig Start Date Stop Date Notes buprenorphine-naloxone 8-2 mg sublingual tablet, sublingual 3 Tablet once a day 11/24/2023 12/24/2023 *Reorder from [facility] for eRx and Interaction Alerts* Next Appt Details Provider Name:Kelsie mccann, 04/25/2024 01:00:00 PM, [address] [place], [address], Progress Notes * Yolette SLAUGHTEROB:1950 ( 73 yo M)Acc No.[id number]:04/06/2024 Patient:?Mason SLAUGHTER :1950???Age:73 Y???Sex:Male Address:[address] [place] [address] * Refills? Stop buprenorphine-naloxone 8-2 mg sublingual tablet, sublingual, 3 Tablet once a day Subjective: * Chief Complaints: * ???EMR-Danny * Medical History:? * Surgical History:? * Hospitalization/Major Diagno stic Procedure:? * Medications:? Objective: * Vitals:? * Physical Examination:? Assessment: Plan: * Treatment: * Procedure Codes:? * * Date:?
[2024-04-15] MEDS: sodium chloride 0.9% 1,000 ML 30 ML IV (10:03)
--- NOTE | 2024-04-15 10:21 | ANES.PREANE2 ---
Pre-Anesthetic Assessment Height/Weight: Height 1.83 m Weight 95.254 kg Temp Pulse Resp BP Pulse Ox O2 Del Method 97.7 F 59 L 18 129/75 95 Room Air 04/15/24 09:42 04/15/24 09:42 04/15/24 09:42 04/15/24 09:42 04/15/24 09:42 04/15/24 09:42 Operation Date: 04/15/24 11:05 Proposed Procedures p Laparoscopic Cholecystectomy 99588, K80.20(Not Applicable) - Mendoza Terrell MD Familial anesthetic complications: None Was Beta Nitza taken within 24 hours: N/A Was Clonidine taken within 24 hours: N/A Last intake: Intake Last Liquid Date 04/15/24 Last Liquid Time 04:30 Last Solid Date 04/14/24 Last Solid Time 20:00 Social No alcohol and No tobacco Exam alert, oriented x 3, clear to auscultation bilaterally and regular rate & rhythm Airway Mallampati: Class IV Dentition: full Pulmonary Chronic Obstructive Pulmonary Disease CV/HEM Atrial Fibrillation and Hypertension Metabolic Thyroid Disease Anesthetic Plan ASA status: 3 Anesthesia: General Risk of > 500 ml blood loss (7ml/kg in children): No Medications/Allergies Home Medications Medication Instructions Recorded Confirmed Last Taken Type cyclobenzaprine 10 mg tablet 10 mg PO BID PRN Pain 07/24/19 04/11/24 04/11/24 History multivitamin (One Daily 1 tab PO DAILY 07/24/19 04/11/24 04/11/24 History Multivitamin tablet) polyethylene glycol 3350 17 17 gm PO DAILY 07/24/19 04/11/24 04/11/24 History gram/dose oral powder (Miralax) tamsulosin 0.4 mg capsule (Flomax) 0.4 mg PO DAILY 07/24/19 04/11/24 04/11/24 History albuterol sulfate 90 mcg/actuation 1 inh inhalation ONCE PRN 07/25/19 04/11/24 04/11/24 History aerosol inhaler (ProAir HFA) Shortness Of Breath cetirizine 10 mg tablet (Zyrtec) 10 mg PO DAILY PRN Allergy Symptoms 07/25/19 04/11/24 04/11/24 History cholecalciferol (vitamin D3) 100 100 mcg PO DAILY 09/18/20 04/11/24 04/11/24 History mcg (4,000 unit) capsule (Vitamin D3) levothyroxine 100 mcg tablet 100 mcg PO DAILY 09/18/20 04/11/24 04/15/24 History (Synthroid) diltiazem HCl 120 mg 120 mg PO DAILY 12/04/20 04/11/24 04/15/24 History capsule,extended release 24 hr (Cardizem CD) sildenafil 100 mg tablet 100 mg PO DAILY PRN sexual 04/14/21 04/11/24 05/08/23 Rx activity #20 tabs fluticasone 500 mcg-salmeterol 50 1 inh inhalation BID #60 ea 11/02/22 04/11/24 04/11/24 Rx mcg/dose blistr powdr for inhalation (Wixela Inhub) tiotropium bromide 2.5 2 puff inhalation DAILY #4 grams 11/02/22 04/11/24 04/11/24 Rx mcg/actuation mist for inhalation (Spiriva Respimat) Copolymer Orthotics #1 ea 01/02/23 04/03/24 05/08/23 Rx diclofenac sodium 1 % topical gel 2 g topical QID #100 grams 02/16/23 04/11/24 05/08/23 Rx (Voltaren Arthritis Pain) silver sulfadiazine 1 % topical 1 applic topical BID 2 weeks #50 02/16/23 04/11/24 05/08/23 Rx cream grams aspirin 325 mg tablet 325 mg PO DAILY #90 tabs 09/05/23 04/11/24 Unknown Rx buprenorphine 8 mg-naloxone 2 mg 1 tab sublingual BID 09/05/23 04/11/24 04/15/24 History sublingual tablet amlodipine 5 mg tablet 5 mg PO DAILY #90 tabs 09/19/23 04/11/24 04/15/24 Rx Allergies Allergy/AdvReac Type Severity Reaction Status Date / Time Alpha-Gal Allergy Intermediate ALGY-Rash Verified 04/11/24 15:23 (Vxkyjklno-Hobxa-6,3-Gala adhesive Allergy rash Verified 04/03/24 12:58 latex Allergy rash Verified 04/03/24 12:58 Penicillins Allergy ALGY-Anaphy Verified 04/03/24 12:58 laxis metoprolol AdvReac SLEEPLESS, Verified 04/03/24 12:58 FREEZING polyethylene glycol AdvReac RASH Verified 04/03/24 12:58 [From Golytely] potassium chloride AdvReac RASH Verified 04/03/24 12:58 [From Golytely] sodium [From Golytely] AdvReac RASH Verified 04/03/24 12:58 sodium bicarbonate AdvReac RASH Verified 04/03/24 12:58 [From Golytely] sodium chloride AdvReac RASH Verified 04/03/24 12:58 [From Golytely] Current Medications Generic Name Dose Route Start Last Admin Trade Name Freq PRN Reason Stop Dose Admin Sodium Chloride 1,000 mls @ 30 mls/hr 04/15/24 10:00 04/15/24 10:03 Sodium Chloride 0.9% IV 30 mls/hr .Q24H TESSIE Administration PFSH Anesthesia Medical History Erectile dysfunction Prostate cancer Colon polyps Chronic low back pain Facet syndrome, lumbar Spinal stenosis, lumbar Polyneuropathy Surgical History H/O esophagogastroduodenoscopy (09/22/20) History of colonoscopy (09/22/20) 2018 Hx of decompressive lumbar laminectomy (~2011) Hx of lumbar discectomy (~06/16/16) Hx of nasal sinusotomy Hx of shoulder surgery RIGHT Family History Father , at age 82 Cancer prostate Mother , at age 91 No problems noted. Other Diabetes Social History Smoking and tobacco/nicotine status: former use of tobacco/nicotine Quit status (tobacco/nicotine): has quit using Year quit tobacco: 2017 [id number] Alcohol intake: never Substance/Drug Use: never Marital status: service: Yes Current occupational status: retired Do you think of yourself as: Straight/Heterosexual Data Anesthesia Cardiac Studies: Echocardiogram 09/15/23 Echocardiogram Ultrasound 08/28/20 Sestamibi Stress Test (Cardiology) 08/28/20 Cardiac Event Monitor 12/08/20
[2024-04-15] MEDS: clindamycin 600 MG/50 ML PREMIX IV (11:09)
[2024-04-15] MEDS: BUPivacaine 0.25% INJ 10 mL INJECTION (12:22)
[2024-04-15] MEDS: lidocaine-epi 1% PF 1:200,000 30 mL SDV INJECTION (12:22)
--- NOTE | 2024-04-15 13:24 | PM.OP ---
Operative Report Date of procedure: April 15, 2024 Pre-op diagnosis: Symptomatic cholelithiasis Post-op diagnosis: same Post-op findings: Chronic inflammation at the level of the hepatocystic triangle, elongated gallbladder, no apparent acute inflammation, adhesions from the omentum and the transverse colon mesentery to the gallbladder. Procedure done: Laparoscopic cholecystectomy Specimens removed/disposition: Gallbladder Surgeon: Mendoza Terrell MD Estimated blood loss: 10 Complications: None apparent Brief History: This a 73-year-old male who was referred to my clinic for symptomatic cholelithiasis. After discussion of all risk benefits and documented my preop note with side to proceed with laparoscopic cholecystectomy. Procedure: Patient was brought into the OR, he was placed in the supine position. General anesthesia was given. The abdomen was prepped and draped in the usual sterile fashion. Timeout was conducted. The abdomen was accessed via ceftibuten trocar in the left upper quadrant, pneumoperitoneum was obtained and initial laparoscopy showed no evidence of visceral injury during entry. A 2 mm trocar was placed in the supraumbilical position under direct visualization, additional 5 mm trocars were placed in the epigastrium right upper quadrant right flank under direct visualization. The gallbladder was grasped from the fundus and retracted cephalad, several adhesions from the omentum were noted and taken down to with blunt dissection and electrocautery. The infundibulum of the gallbladder was retracted in the inferolateral direction, I then proceeded to open the peritoneum anterior to the hepatocystic triangle with electrocautery, this opening was carried on the medial and lateral dissection to the edges of the liver and then on the sides of the gallbladder to allow for better exposure. With careful blunt dissection and electrocautery I was able to encircle the cystic artery and cystic duct, the lower third of the gallbladder was also elevated from the gallbladder prior thus obtaining a clinical review of safety. The cystic duct and cystic artery were double clipped proximally and single clipped distally and transected. The gallbladder was removed from the liver bed with electrocautery, during dissection I hide branch of the cystic artery coming to the posterior wall the gallbladder was noted, a clip was applied in the blood vessel was cut with electrocautery. Once the gallbladder was removed I inspected the liver bed and the area of the clips, the clips were in good location there was no evidence of bile leak, there was minimal oozing there was noted to be from arterial branch of the cystic artery, this was grasped and clipped under direct visualization. After that I irrigated the liver bed and the area of the clips, no residual bleeding was noted. The gallbladder was retrieved via the umbilical trocar site. This was done in an Endo Catch bag under direct visualization. I then proceeded to deflate the abdomen for 2 minutes, upon reinsufflation no evidence of active bleeding or blood clots were noted. I checked once again the area of the clearance of the liver bed and they look hemostatic and in good position. The belittle trocar site was closed with Apollo-Rose suture passer and a 0 Vicryl under direct visualization. The right upper quadrant, right flank and epigastrium trocars were removed under direct visualization the left upper quadrant trocar was utilized to evacuated pneumoperitoneum and subsequently removed. The wounds were closed in layers using #3-0 Vicryl for the subcutaneous tissue #4 Monocryl for the skin. Dermabond was applied. At the end of the procedure all counts were correct, the patient tolerated well the procedure was transferred to the PACU in stable condition.
[2024-04-15] MEDS: fentaNYL 50 mcg/mL INJ 2mL IVP (13:44)
[2024-04-15] MEDS: HYDROmorphone 1 mg/mL INJ 1 mL 0.5 MG IVP (14:17)
--- NOTE | 2024-04-15 15:00 | ANE.PACU2 ---
Inpatient post-anesthesia follow up: Airway intact: Yes Vital signs: Temperature 97.8 F Pulse Rate 80 Respiratory Rate 17 Blood Pressure 157/77 Pulse Oximetry 96 Oxygen Delivery Me thod Room Air Oxygen Flow Rate 6 Fraction of Inspir ed Oxygen Hydration adequate: Yes Nausea and vomiting: No Pain level: 1 Mental status: Baseline
== END 2024-04-15 15:00 | disposition home or self-care (01) ==
PROVIDERS: PCP Nurse Practitioner; Visit Provider Surgery
PROC: 0FT44ZZ Resection of Gallbladder, Percutaneous Endoscopic Approach (ICD-10-PCS; CPT 47562; principal; 2024-04-15 10:55)
DX: K80.10 Calculus of gallbladder with chronic cholecystitis without obstruction (principal); J44.9 Chronic obstructive pulmonary disease, unspecified; I48.91 Unspecified atrial fibrillation; I10 Essential (primary) hypertension; Z79.82 Long term (current) use of aspirin; Z85.46 Personal history of malignant neoplasm of prostate; Z87.891 Personal history of nicotine dependence
CPT/HCPCS: 47562; 88304; J1100; J1171; J2405; J2704; J3010; J3490; J7030

== ENCOUNTER → 2024-04-30 10:39 | Outpatient (BNVA) | payer OTHER, SELFPAY | PROVIDERS: PCP Nurse Practitioner; Visit Provider Surgery | DX: K80.20 Calculus of gallbladder without cholecystitis without obstruction (principal) | CPT/HCPCS: 99213 ==

== ENCOUNTER → 2024-06-18 09:35 | Outpatient (BNVA) | payer OTHER, SELFPAY | PROVIDERS: PCP Nurse Practitioner; Visit Provider Internal Medicine | DX: I71.20 Thoracic aortic aneurysm, without rupture, unspecified (principal); E78.5 Hyperlipidemia, unspecified; J43.2 Centrilobular emphysema; I10 Essential (primary) hypertension; I48.91 Unspecified atrial fibrillation; Z87.891 Personal history of nicotine dependence | CPT/HCPCS: 99214 ==

== ENCOUNTER 2024-07-09 11:40 | Outpatient (CLI) | payer OTHER, SELFPAY ==
--- NOTE | 2024-07-09 12:30 | CT_ITS ---
WS: [id number] CTA THORACIC AORTA WITH AND WITHOUT CONTRAST HISTORY: Thoracic aortic aneurysm TECHNIQUE: CTA imaging of the thorax is performed with and without contrast. After noncontrast imagin g is performed, CT angiogram is performed during injection of Omnipaque 350; 100 mL IV.. Sagittal and coronal reconstructions, sagittal and coronal MIP imaging is submitted. All CT scans at [facility] use at least one of these dose optimization techniques: automated exposure control; mA and/or kV adjustment per patient size (includes targeted exams where dose is matched to clinical indication) ; or iterative reconstruction. DLP: 837.72 mGy.cm COMPARISON: 08/01/2023, 05/01/2023 Mildly ectatic ascending thoracic aorta. Maximum diameter of 4.3 cm which is similar to prior studies including 01/14/2022. Mildly ectatic aorta with mild calcified plaque. Ascending thoracic aorta normal caliber. Mild tortuosity and ectasia of the distal thoracic aorta. Aortic root 3.8 cm. Sinus of Valsalva 3.0 cm. There is no dissection or ulcerated plaque. Normal pulmonary artery. Normal size pulmonary artery with no filling defects. Normal size heart. No pericardial or pleural effusions. No mediastinal or hilar adenopathy. 11 mm RIGHT hilar lymph node. Lungs are hyperexpanded. Benign granuloma medial LEFT lower lobe. Mild groundglass attenuation in the medial RIGHT lower lobe adjacent to an thoracic spine osteophyte. Small hiatal hernia. Subcentimeter, probable hepatic cyst towards the superior RIGHT lobe of the live r measures 5 mm. No adrenal mass. Increase in thoracic kyphosis. Subcutaneous nodule measuring 8 mm in the anterior LEFT chest wall. Th is is probably a sebaceous cyst. Slightly increased in size since 05/01/2023. CT/CT angio chest 27780 IMPRESSION: 1. Minimal dilatation of the ascending thoracic aorta to 4.3 cm, long-term sta bility since at least 01/14/2022. 2. Mild atherosclerosis aorta. 3. Normal size heart. 4. Normal pulmonary artery. 5. No adenopathy.
[2024-07-09 12:39] LABS: Blood Urea Nitrogen 16 mg/dL (8-23)
[2024-07-09] MEDS: iohexol 350 mg/mL 500 mL Btl (per mL) IV (12:51)
== END 2024-07-09 11:41 | disposition home or self-care (01) ==
LOC: RAD 11:40
PROVIDERS: PCP Nurse Practitioner; Visit Provider Internal Medicine
DX: I71.20 Thoracic aortic aneurysm, without rupture, unspecified (principal); I70.0 Atherosclerosis of aorta; Q25.46 Tortuous aortic arch; R59.0 Localized enlarged lymph nodes; R91.8 Other nonspecific abnormal finding of lung field; J84.10 Pulmonary fibrosis, unspecified; M25.78 Osteophyte, vertebrae; K44.9 Diaphragmatic hernia without obstruction or gangrene; R93.2 Abnormal findings on diagnostic imaging of liver and biliary tract; M40.294 Other kyphosis, thoracic region; R93.5 Abnormal findings on diagnostic imaging of other abdominal regions, including retroperitoneum
CPT/HCPCS: 71275; 82565; 84520

== ENCOUNTER → 2024-08-19 13:10 | Outpatient (BNVA) | payer OTHER, SELFPAY | PROVIDERS: PCP Nurse Practitioner; Visit Provider Podiatrist Foot & Ankle Surgery | DX: L60.3 Nail dystrophy (principal); Q66.71 Congenital pes cavus, right foot | CPT/HCPCS: 99213 ==

== ENCOUNTER → 2025-03-18 12:39 | Outpatient (BNVA) | payer OTHER, SELFPAY | PROVIDERS: PCP Nurse Practitioner; Visit Provider Internal Medicine | DX: I48.91 Unspecified atrial fibrillation (principal); Z79.82 Long term (current) use of aspirin; I71.20 Thoracic aortic aneurysm, without rupture, unspecified; E78.5 Hyperlipidemia, unspecified; J44.9 Chronic obstructive pulmonary disease, unspecified; I10 Essential (primary) hypertension; Z87.891 Personal history of nicotine dependence | CPT/HCPCS: 99214 ==